=== PATIENT | female | born 1980 | race Caucasian/White ===

== ENCOUNTER 2020-07-26 09:31 | Outpatient (REF) | payer OTHER, SELFPAY | END 2020-07-26 09:32 | disposition home or self-care (01) | LOC: HO.LAB 09:31 | PROVIDERS: Visit Provider Internal Medicine | DX: Z20.822 Contact with and (suspected) exposure to COVID-19 (principal) | CPT/HCPCS: 36415; C9803; U0003; U0005 ==

== ENCOUNTER 2020-08-08 09:58 | Outpatient (REF) | payer OTHER, SELFPAY | END 2020-08-08 09:59 | disposition home or self-care (01) | LOC: HO.LAB 09:58 | PROVIDERS: Visit Provider Internal Medicine | DX: Z20.822 Contact with and (suspected) exposure to COVID-19 (principal) | CPT/HCPCS: 36415; C9803; U0003; U0005 ==

== ENCOUNTER 2021-10-11 05:37 | Emergency (ER) | payer OTHER, SELFPAY ==
--- NOTE | 2021-10-11 | ECG_ITS ---
Test Reason : sob Blood Pressure : / mmHG Vent. Rate : 089 BPM Atrial Rate : 089 BPM P-R Int : 144 ms QRS Dur : 086 ms QT Int : 366 ms P-R-T Axes : 042 026 -07 degrees QTc Int : 445 ms Normal sinus rhythm Normal ECG No previous ECGs available Referred By: Generic ED Physician Electronically Signed By:RAYMUNDO ERNST
--- NOTE | ~2021-10-11 | XR_ITS ---
EXAMINATION: XR CHEST CLINICAL INFORMATION: Cough. COMPARISON: None TECHNIQUE: Frontal view of the chest was obtained. FINDINGS: Multiple artifacts overlie the thorax. Normal appearance of the cardiomediastinal structures. No effusions or pneumothoraces. No focal pulmonary consolidation. Low lung volumes with the fifth anterior rib segments terminating projection with the lung bases. XR/XR chest 1V IMPRESSION: Low lung volumes; otherwise no acute cardiopulmonary abnormalities.
[2021-10-11 05:40] VITALS: PULSE 97; RESP 24; TEMP 36.8; O2SAT 98; BMI 25.1
[2021-10-11 05:58] LABS: Basophils Percent Auto 0.2 % (0-2); Eosinophils Absolute Auto 0.4 X10*3/uL (0.0-0.4); Eosinophils Percent Auto 4.4 % (0-4); Hematocrit 42.8 % (37.0-47.0); Hemoglobin 14.3 g/dl (12.0-16.0); Imm Gran Abs Auto 0.03 X10*3/uL (0.00-0.03); Imm Gran Pct Auto 0.3 % (0.0-0.4); Lymphocytes Absolute Auto 2.4 X10*3/uL (1.2-4.9); Lymphocytes Percent Auto 23.5 % (20-40); MANUAL DIFF FLAG NO; Mean Corpuscular HGB Conc 33.4 g/dl (31.0-35.0); Mean Corpuscular Volume 89.7 fL (80.0-98.0); Monocytes Absolute Auto 0.9 X10*3/uL (0.1-1.2); Monocytes Percent Auto 9.1 % (2-11); Neutrophils Absolute Auto 6.3 x10*3/uL (2.0-8.3); Neutrophils Percent Auto 62.5 % (45-73); Platelet Count 370 X10*3/uL (160-400); Red Blood Count 4.77 X10*6/uL (4.20-5.50); Red Cell Distribution Width 12.9 % (11.0-16.0)
--- NOTE | 2021-10-11 06:00 | PC.NURSE ---
PT having bouts of coughing with O2 sat decreasing to 91-92%. O2 sat returned to 94-95% when coughing but still reporting SOB. PT placed on O2 at 2 L/min via NC with sats improving to 98%.
--- NOTE | 2021-10-11 06:16 | ED_ITS ---
HPI - SOB/Dyspnea General Chief Complaint: Dyspnea Stated Complaint: Sob Time Seen by Provider: 10/11/21 06:14 Source: patient Mode of arrival: ambulatory Limitations: no limitations History of Present Illness HPI Narrative: Patient history of asthma been coughing with shortness of breath for last 1 week already been vaccinated against COVID bleeding booster dose cough is mostly dry. No chest pain no leg swelling no nausea no vomiting patient's son was also sick with same also patient lost her voice coughing a lot when taking a deep breath Related Data Previous Rx's Medication Instructions Recorded cefuroxime axetil 500 mg tablet 500 mg PO BID #20 tab 10/11/21 codeine 10 mg-guaifenesin 100 mg/5 10 ml PO Q6H PRN #237 ml 10/11/21 mL oral liquid doxycycline hyclate 100 mg tablet 100 mg PO BID #20 tab 10/11/21 prednisone 20 mg tablet 40 mg PO DAILY #10 tab 10/11/21 Allergies Allergy/AdvReac Type Severity Reaction Status Date / Time No Known Allergies Allergy Unverified 03/03/20 19:43 [No Known Allergies*] Review of Systems Review of Systems: Yes all other systems are reviewed and are negative [facility] Social History Social History Advance Directives: No Physical Exam Vital Signs: Vital Signs: Last Vital Signs Temp 98.2 F 10/11/21 05:40 Pulse 97 10/11/21 06:30 Resp 24 H 10/11/21 06:30 Pulse Ox 98 10/11/21 05:40 BMI result Body Mass Index 25.1 Appearance: Alert. Oriented X3. Mild distress with frequent cough. Eyes: No pallor ENT: Pharynx normal. Oral Mucosa moist muffled voice no stridor Neck: Normal inspection. Neck supple. CVS: Normal heart rate and rhythm. Pulses normal. Respiratory: mild respiratory distress. Equal air entry bilateral, bilateral wheezing and rhonchi no crackles Abdomen: Soft and nontender. Bowel sounds are present, Skin: Skin warm and dry. Normal skin color. Normal skin turgor. Extremities: No lower extremity edema. No calf tenderness Neuro: Oriented X 3. MDM - SOB/Dyspnea MDM Narrative Medical decision making narrative: Patient COVID influenza negative will give nebulizing treatment and steroids chest x-ray negative for any infiltrate we will discharge patient home on Ceftin doxycycline prednisone advised to follow with PCP patient is saturating 95% on room air Lab Data Attestation: I reviewed the patient's lab results. Result diagrams: 10/11/21 05:53 10/11/21 05:53 Labs: Lab Results 10/11/21 10/11/21 10/11/21 Range/Units 05:48 05:48 05:53 WBC 10.0 (4.8-10.8) X10*3/uL RBC 4.77 (4.20-5.50) X10*6/uL Hgb 14.3 (12.0-16.0) g/dl Hct 42.8 (37.0-47.0) % MCV 89.7 (80.0-98.0) fL MCH 30.0 (27.0-33.0) pg MCHC 33.4 (31.0-35.0) g/dl RDW 12.9 (11.0-16.0) % Plt Count 370 (160-400) X10*3/uL MPV 10.0 (9.4-12.3) fL Immature Gran % (Auto) 0.3 (0.0-0.4) % Neut % (Auto) 62.5 (45-73) % Lymph % (Auto) 23.5 (20-40) % [place] % (Auto) 9.1 (2-11) % Eos % (Auto) 4.4 H (0-4) % Baso % (Auto) 0.2 (0-2) % Lymph # (Auto) 2.4 (1.2-4.9) X10*3/uL [place] # (Auto) 0.9 (0.1-1.2) X10*3/uL Eos # (Auto) 0.4 (0.0-0.4) X10*3/uL Baso # (Auto) 0.0 (0.0-0.2) X10*3/uL Abs Immat Gran (auto) 0.03 (0.00-0.03) X10*3/uL Absolute Neuts (auto) 6.3 (2.0-8.3) x10*3/uL Absolute Nucleated RBC 0.000 (0.0-0.012) X10*3/uL Nucleated RBC % (auto) 0.0 (0.0-0.2) /100WBC Sodium (135-145) mmol/L Potassium (3.3-5.1) mmol/L Chloride (96-108) mmol/L Carbon Dioxide (22-29) mmol/L Anion Gap (12-20) BUN (9-16) mg/dL Creatinine (0.5-1.4) mg/dL Estim Creat Clear Calc Estimated GFR Random Glucose (60-115) mg/dL Calcium (8.4-10.2) mg/dL Total Bilirubin (0.0-1.0) mg/dL AST (5-31) U/L ALT (0-31) U/L Alkaline Phosphatase (39-117) U/L Troponin I High Sens (<3.5-17.0) ng/L Total Protein (6.5-8.0) g/dL Albumin (3.5-5.0) g/dL COVID-19 (ZAYDA) Negative (Negative) COVID-19 Clin Com See Note Influenza Type A (JENNIFER) Negative (Negative) Influenza Type B (JENNIFER) Negative (Negative) Influenza A & B Note See Note 10/11/21 10/11/21 Range/Units 05:53 05:53 WBC (4.8-10.8) X10*3/uL RBC (4.20-5.50) X10*6/uL Hgb (12.0-16.0) g/dl Hct (37.0-47.0) % MCV (80.0-98.0) fL MCH (27.0-33.0) pg MCHC (31.0-35.0) g/dl RDW (11.0-16.0) % Plt Count (160-400) X10*3/uL MPV (9.4-12.3) fL Immature Gran % (Auto) (0.0-0.4) % Neut % (Auto) (45-73) % Lymph % (Auto) (20-40) % [place] % (Auto) (2-11) % Eos % (Auto) (0-4) % Baso % (Auto) (0-2) % Lymph # (Auto) (1.2-4.9) X10*3/uL [place] # (Auto) (0.1-1.2) X10*3/uL Eos # (Auto) (0.0-0.4) X10*3/uL Baso # (Auto) (0.0-0.2) X10*3/uL Abs Immat Gran (auto) (0.00-0.03) X10*3/uL Absolute Neuts (auto) (2.0-8.3) x10*3/uL Absolute Nucleated RBC (0.0-0.012) X10*3/uL Nucleated RBC % (auto) (0.0-0.2) /100WBC Sodium 140 (135-145) mmol/L Potassium 4.2 (3.3-5.1) mmol/L Chloride 106 (96-108) mmol/L Carbon Dioxide 22 (22-29) mmol/L Anion Gap 16 (12-20) BUN 15 (9-16) mg/dL Creatinine 0.85 (0.5-1.4) mg/dL Estim Creat Clear Calc 97.3 Estimated GFR > 60 Random Glucose 140 H (60-115) mg/dL Calcium 9.8 (8.4-10.2) mg/dL Total Bilirubin 0.3 (0.0-1.0) mg/dL AST 30 (5-31) U/L ALT 53 H (0-31) U/L Alkaline Phosphatase 91 (39-117) U/L Troponin I High Sens < 3.5 (<3.5-17.0) ng/L Total Protein 7.5 (6.5-8.0) g/dL Albumin 4.0 (3.5-5.0) g/dL COVID-19 (ZAYDA) (Negative) COVID-19 Clin Com Influenza Type A (JENNIFER) (Negative) Influenza Type B (JENNIFER) (Negative) Influenza A & B Note Discharge Plan Discharge Clinical Impression: Asthma with exacerbation, Acute bronchitis Patient Disposition: Home, Self-Care Instructions: Asthma (ED), Acute Bronchitis (ED) Additional Instructions: Continue to use albuterol nebulizing treatment every 4-6 hours as needed Prednisone antibiotic as prescribed Follow with PCP if not better Prescriptions: New prednisone 20 mg tablet 40 mg PO DAILY Qty: 10 0RF codeine-guaifenesin 10-100 mg/5 mL liquid 10 ml PO Q6H PRN (Reason: cough) Qty: 237 0RF cefuroxime axetil 500 mg tablet 500 mg PO BID Qty: 20 0RF doxycycline hyclate 100 mg tablet 100 mg PO BID Qty: 20 0RF
[2021-10-11 06:17] LABS: Troponin-I High Sensitivity < 3.5 ng/L (<3.5-17.0)
[2021-10-11 06:19] LABS: COVID-19 Test Negative (Negative); IDNOW Serial# 55D5AD1C
[2021-10-11 06:20] LABS: Influenza A Negative (Negative); Influenza B2 Negative (Negative)
[2021-10-11] MEDS: methylPREDNISolone Sod Succ 125 MG/2 ML VIAL IVPUSH (06:23)
[2021-10-11] MEDS: guaiFEN/Codeine SF 200/20/10ML 10 ML LIQUID PO (06:23)
[2021-10-11 06:25] LABS: Alanine Aminotransferase 53 U/L (0-31); Alkaline Phosphatase 91 U/L (39-117); Anion Gap 16 (12-20); Aspartate Amino Transferase 30 U/L (5-31); Bilirubin Total 0.3 mg/dL (0.0-1.0); Blood Urea Nitrogen 15 mg/dL (9-16); Calcium 9.8 mg/dL (8.4-10.2); Carbon Dioxide 22 mmol/L (22-29); Chloride 106 mmol/L (96-108); Creatinine Clr Calc Pharmacy 97.3; Estimated Glomerular Filt Rate > 60; Glucose Random 140 mg/dL (60-115); Potassium 4.2 mmol/L (3.3-5.1); Sodium 140 mmol/L (135-145); Total Protein 7.5 g/dL (6.5-8.0)
[2021-10-11] MEDS: Albuterol/Iprat 2.5/0.5MG 3 ML AMPUL.NEB INHALE (06:29)
[2021-10-11] MEDS: Albuterol Sulfate (0.083%) 2.5 MG/3 ML VIAL.NEB 5 MG INHALE (06:29)
[2021-10-11 06:30] VITALS: PULSE 97; RESP 24
[2021-10-11] MEDS: Magnesium Sulfate/H2O 2 GM/50 ML PIGGYBACK IV (06:45)
[2021-10-11 07:04] VITALS: BP 128/83; PULSE 83; RESP 18; TEMP 37.1; O2SAT 98
== END 2021-10-11 07:54 | disposition home or self-care (01) ==
PROVIDERS: Emergency Provider Internal Medicine
DX: J20.9 Acute bronchitis, unspecified (principal); J45.901 Unspecified asthma with (acute) exacerbation; Z20.822 Contact with and (suspected) exposure to COVID-19
CPT/HCPCS: 36415; 71045; 80053; 84484; 85025; 87502; 87635; 93005; 94640; 94644; 96365; 96366; 96375; 99284; J2930; J3475

== ENCOUNTER → 2022-11-08 11:22 | Outpatient (BNVA) | payer OTHER, SELFPAY | PROVIDERS: Visit Provider Physician Assistant Surgical ==

== ENCOUNTER 2022-12-25 11:21 | Outpatient (AMB) | payer OTHER, SELFPAY ==
--- NOTE | 2022-12-25 11:26 | MHC.OFFVISWM ---
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 Her goal is to lose weight and achieve a healthy lifestyle as well as to improve, if not resolve, obesity related medical conditions, including HTN and MARK. She reports first being concerned about her weight 6 years ago since coming to [facility], highest weight to date was 320. Her initial weight on 11/08/22 was 320.8 and a BMI of 44.8. She cut out candy and fried food. Current weight is 309.4 with a BMI of 43.2. She has tried multiple methods of weight loss including fad diets without permanent results. She lives with her 2 kids. She currently does not work. She cannot eat anything with nuts due to anaphylactic reaction. 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 She previously was able to tolerate protein bars but now has to carry an epi-pen as she has throat closing. She wakes at:?8am, and goes to bed at?11 pm. Dinner is at 4pm. Breakfast: eggs, ham cheese, soda crackers AM snack: yogurt Lunch: skip PM snack: yogurt or fruit Dinner: chicken, salmon, vegetables After dinner: yogurt, popcorn, Other snacks: cheese and crackers, cookies, ice cream Liquids: 32-48 oz water, no soda. regular iced tea 16 oz, 16 oz coffee daily Alcohol/marijuana/tobacco intake: none Exercise: walking, treadmill at home. GERD score: 5 DOMINIC score: 3 ESS score: 12 QOL score: 95 PFSH Surgical History Hx of section Hx of cholecystectomy Hx of hernia repair Hx of rectal polypectomy Family History Mother No problems noted. Father Hypertension Heart disease Brother No problems noted. Brother No problems noted. Son No problems noted. Son No problems noted. Social History Alcohol intake: never Patient Tobacco Use Status: Never used Tobacco Review of Systems Const All systems reviewed & are unremarkable except as noted in HPI and below Physical Exam Vital Signs: Last Vital Signs Temp 97.2 F 12/25/22 11:36 Pulse 80 12/25/22 11:36 BP 136/73 12/25/22 11:36 Pulse Ox 96 12/25/22 11:36 Oxygen Delivery Method Room Air 12/25/22 11:36 BMI result Body Mass Index 43.1 Const General: cooperative, healthy appearing and no acute distress Orientation/consciousness: patient oriented x3 HEENT Head: Yes normal to inspection Ears: hearing grossly normal bilaterally General nose exam: Normal external nose present Face and sinus: Yes normal facial exam Eyes General: appearance normal, both eyes and all related structures Resp Effort & Inspection: normal respiratory effort Auscultation: clear to auscultation bilaterally Cardio Rate: regular rate Rhythm: regular rhythm Heart sounds: S1 normal heart sound present and S2 normal heart sound present GI Inspection: Yes normal to inspection, No distended and Yes obesity Palpation (GI): Soft to palpation, nontender and no guarding Auscultation: normal bowel sounds Skin General skin exam: no rashes or lesions noted Neuro General: patient oriented x3 Extrem General: No edema Psych Appearance: grossly normal Mental Status: mental status grossly normal Speech and movement: Normal speech and movement present Affect: normal affect Attitude: cooperative Assessment & Plan Assessment & Plan (1) Morbid obesity: Code(s): E66.01 - Morbid (severe) obesity due to excess calories Plan: This is a?42 yo female who will start our SWL program to prepare for bariatric surgery.? Will check blood work, h pylori , CXR, ECG, Abd US and UGI at her 3 week follow up if she is still interested in the program. She will be scheduled for RD and BH initial consultations. She will start SWL classes and watch the first three videos before her next appointment. ? Adequate sleep of 7-8 hours per night discussed, awakening at 8 am and going to bed at 11 pm ? Purchase body composition analyzer scale (Jun sol or Lesa recommended) and check weight weekly. The best time to do this is first thing in the morning after going to the bathroom. 1. Nutritional counseling: Be sure to careful read the number of scoops per shake Start with 3 Orgain shakes ([employer], [employer], [employer]) First shake (1 and 1/2 scoops in 8 oz low fat milk) at 9am-11am, Second shake, (1 scoop in 8 oz low fat milk) at 1pm-3pm Dinner at 4pm (10 forks of protein and 10 forks of salad/vegetables). Meal to include lean meat (beef, fish, pork, turkey, chicken), cooked vegetables or a salad with olive oil and/or fruits (berries, pears, apples, kiwi). Avoid salt, breads, potatoes, rice, pasta, desserts. 1 protein bar (NoNuts bars at [employer] or [employer] at 6pm-8pm. Another shake with 1 scoop in 8 oz low fat milk at 9pm-11pm. Try to drink 64 oz of water daily and avoid soda and juices. Be sure to read all labels closely as you have a serious nut allergy ?2. Each shake would be drunk slowly, like coffee in a period of 2 hours. ?3. Cut each bar in 4 pieces and eat each piece in 30 min ?to make each bar last 2 hours. ?4. I emphasized the importance of measuring accurately the food portion and measure it carefully when serving the food on the plate ?5. The meal portions include 10 full-size forks of meat and 10 full-size forks of salad. You always eat the meat portion but you can replace up to half of the forks of salad/vegetables with rice, potatoes or pasta, or a fruit ?if you like. The less you do it the better weight loss will be. ?6. One full-size fork is what can be scooped on the fork without falling aside and not what can be bit with the fork. Use regular forks like those you find in a typical restaurant. ?7.? Please send me weight measurements as soon as possible and then once a week. Always include your diet and exercise plan. Alternatively come weekly at the office for weight checks and send me the measurements. ?8. Exercise counseling: Begin by watching a stretching for beginners video. Start slowly and begin to stretch your muscles. You should do this before and after each exercise session to prevent injury. Please begin to use the treadmill that you have in your home. Start treadmill with a speed of 3.0 and incline of 0, increasing incline by 1 every 3 minutes to the highest comfortable level (max 6 for now) then decrease in the same fashion. Repeat process to a goal of 300 calories. Goal of 2000 calories burned or more weekly. You may also consider use of a stationary bike. The easiest would be to chose the fat-burn or interval training program on the machine and do this until you reach the 300 calorie goal. Alternatively, you can manually adjust the resistance in a similar fashion as mentioned above, (resistance of 2-8 with a goal speed of 12 mph). Tracking calories is essential. 9. Alternatively start walking outside daily, tracking calories with a goal of 300 calories per day, daily. You can download the jason SUNDAYTOZ which can track your time, distance and calories while walking outside. You press start in the jason when you start and then stop when you are finished. 10.? It is important to avoid and for at least 18 months postoperatively. 11. Please text me weekly with your weight and also let me know if you have any problems with the plans. 12. Discussed and answered all questions regarding?obtained consent to participate in the [facility]?Registry. 13. Please follow the diet plan exactly, without any change. If you do not like something about the plan or you feel hungry, you need to communicate with me so I can help you revise the plan. You should not change the plan yourself. Text me at [phone] 14. Goal is to lose at least 12 pounds in the first month 15. Goal is to lose 10% of your weight before surgery, which is about 30 lbs. Ultimate weight goal: 279 lbs before surgery Patient is morbidly obese and is not considered stable at this time.?I spent a total of 70 minutes reviewing/updating records, examining the patient and counseling the patient on weight management as detailed above. Coding Level of Care Code New Pt Level 5 (22166) Diagnoses Morbid obesity E66.01 Time Spent (min) 70
[2022-12-25 11:36] VITALS: BP 136/73; PULSE 80; TEMP 36.2; O2SAT 96; BMI 43.1
== END 2022-12-25 13:19 | disposition home or self-care (01) ==
PROVIDERS: Visit Provider Physician Assistant Surgical
DX: E66.01 Morbid (severe) obesity due to excess calories (principal); Z68.41 Body mass index [BMI] 40.0-44.9, adult
CPT/HCPCS: 99205

== ENCOUNTER → 2022-12-25 11:21 | Outpatient (BNVA) | payer OTHER, SELFPAY | PROVIDERS: Visit Provider Physician Assistant Surgical | DX: E66.01 Morbid (severe) obesity due to excess calories (principal); Z68.41 Body mass index [BMI] 40.0-44.9, adult | CPT/HCPCS: 99202 ==

== ENCOUNTER 2023-01-17 10:24 | Outpatient (AMB) | payer OTHER, SELFPAY ==
--- NOTE | 2023-01-17 10:42 | MHC.OFFVISWM ---
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 They were last seen in the office on 12/25/22, recorded weight at that time was 309.4 pounds, with a BMI of 43.1. Today's weight is 304.6 pounds and BMI is 42.5. There has been a weight loss of 16.2 pounds since initiating the surgical weight loss program on 11/08/22 with a total body weight loss of 5.04 %. The patient reports she was trying to follow the meal plan but did not buy the bars, will do so now. She has also had dietary indiscretions 2-3 per week. Current meal plan includes: 3 Orgain shakes ([employer], [employer], [employer]) First shake (1 and 1/2 scoops in 8 oz low fat milk) at 9am-11am, Second shake, (1 scoop in 8 oz low fat milk) at 1pm-3pm Dinner at 4pm (10 forks of protein and 10 forks of salad/vegetables). Meal to include lean meat (beef, fish, pork, turkey, chicken), cooked vegetables or a salad with olive oil and/or fruits (berries, pears, apples, kiwi). Avoid salt, breads, potatoes, rice, pasta, desserts. 1 protein bar (NoNuts bars at [employer] or [employer]) at 6pm-8pm. Another shake with 1 scoop in 8 oz low fat milk at 9pm-11pm. Drinking 48 oz of water Current exercise plan includes: walking and home videos PFSH Surgical History Hx of section Hx of cholecystectomy Hx of hernia repair Hx of rectal polypectomy Family History Mother No problems noted. Father Hypertension Heart disease Brother No problems noted. Brother No problems noted. Son No problems noted. Son No problems noted. Social History Alcohol intake: never Patient Tobacco Use Status: Never used Tobacco Physical Exam Vital Signs: Last Vital Signs Temp 96.5 F L 01/17/23 10:59 Pulse 78 01/17/23 10:59 BP 133/80 01/17/23 10:59 Pulse Ox 97 01/17/23 10:59 Oxygen Delivery Method Room Air 01/17/23 10:59 BMI result Body Mass Index 42.5 Const General: healthy appearing and no acute distress Resp Effort & Inspection: normal respiratory effort Auscultation: clear to auscultation bilaterally Cardio Rate: regular rate Rhythm: regular rhythm GI Auscultation: normal bowel sounds Extrem General: Yes normal to inspection Assessment & Plan Assessment & Plan (1) Morbid obesity: Code(s): E66.01 - Morbid (severe) obesity due to excess calories Plan: Discussed importance of following meal plan exactly and to re-read email (brought up on pt phone for her) Discussed importance of tracking calories RTC 4 weeks order labs and dx imaging Orders: Orders Vitamin B12 and Folate Today E66.01 - Morbid (severe) obesity due to excess calories, I10 - Essential (primary) hypertension Comprehensive Met. Panel Today E66.01 - Morbid (severe) obesity due to excess calories, I10 - Essential (primary) hypertension C Reactive Protein Today E66.01 - Morbid (severe) obesity due to excess calories, I10 - Essential (primary) hypertension Ferritin Today E66.01 - Morbid (severe) obesity due to excess calories, I10 - Essential (primary) hypertension Hemoglobin A1c Today E66.01 - Morbid (severe) obesity due to excess calories, I10 - Essential (primary) hypertension Insulin Today E66.01 - Morbid (severe) obesity due to excess calories, I10 - Essential (primary) hypertension IRON PROFILE Today E66. - Morbid (severe) obesity due to excess calories, I10 - Essential (primary) hypertension Lipid Panel Today E66. - Morbid (severe) obesity due to excess calories, I10 - Essential (primary) hypertension PTHI Today E66. - Morbid (severe) obesity due to excess calories, I10 - Essential (primary) hypertension TSH reflex Free T4 Today E66. - Morbid (severe) obesity due to excess calories, I10 - Essential (primary) hypertension Vitamin A Today E66. - Morbid (severe) obesity due to excess calories, I10 - Essential (primary) hypertension Vitamin B1 Today E66. - Morbid (severe) obesity due to excess calories, I10 - Essential (primary) hypertension Vitamin D 25-OH Total Today E66. - Morbid (severe) obesity due to excess calories, I10 - Essential (primary) hypertension Zinc Today E66. - Morbid (severe) obesity due to excess calories, I10 - Essential (primary) hypertension ECG 12 lead EKG Today E66. - Morbid (severe) obesity due to excess calories, I10 - Essential (primary) hypertension FL upper GI w air Today E66. - Morbid (severe) obesity due to excess calories, I10 - Essential (primary) hypertension Complete Blood Count Auto Diff Today E66. - Morbid (severe) obesity due to excess calories, I10 - Essential (primary) hypertension H Pylori Breath Test Today E66. - Morbid (severe) obesity due to excess calories, I10 - Essential (primary) hypertension US abdomen comp w elastography Today E66. - Morbid (severe) obesity due to excess calories, I10 - Essential (primary) hypertension XR chest 2V Today E66. - Morbid (severe) obesity due to excess calories, I10 - Essential (primary) hypertension Referrals Behavioral Health Referral E66. - Morbid (severe) obesity due to excess calories, I10 - Essential (primary) hypertension Nutrition/Dietitian Referral E66. - Morbid (severe) obesity due to excess calories, I10 - Essential (primary) hypertension Coding Level of Care Code Est Pt Level 3 (08675) Diagnoses Morbid obesity 6
[2023-01-17 10:59] VITALS: BP 133/80; PULSE 78; TEMP 35.8; O2SAT 97; BMI 42.5
== END 2023-01-17 13:01 | disposition home or self-care (01) ==
PROVIDERS: Visit Provider Physician Assistant Surgical
DX: E66.01 Morbid (severe) obesity due to excess calories (principal); Z68.41 Body mass index [BMI] 40.0-44.9, adult
CPT/HCPCS: 99213

== ENCOUNTER → 2023-01-17 10:24 | Outpatient (BNVA) | payer OTHER, SELFPAY | PROVIDERS: Visit Provider Physician Assistant Surgical | DX: E66.01 Morbid (severe) obesity due to excess calories (principal); Z68.41 Body mass index [BMI] 40.0-44.9, adult | CPT/HCPCS: 99212 ==

== ENCOUNTER 2023-01-28 10:44 | Outpatient (REF) | payer OTHER, SELFPAY ==
--- NOTE | ~2023-01-28 | XR_ITS ---
EXAMINATION: XR CHEST CLINICAL INFORMATION: Morbid (severe) obesity due to excess calories COMPARISON: AP upright portable chest 10/11/2021 TECHNIQUE: 2 views of the chest were obtained. FINDINGS: No significant abnormality is noted involving the heart, lungs, mediastinum, bony thorax or soft tissues. XR/XR chest 2V IMPRESSION: No acute cardiopulmonary disease.
--- NOTE | 2023-01-28 10:53 | ECG_ITS ---
Test Reason : MORBID OBESITY Blood Pressure : / mmHG Vent. Rate : 058 BPM Atrial Rate : 058 BPM P-R Int : 140 ms QRS Dur : 086 ms QT Int : 440 ms P-R-T Axes : 018 025 002 degrees QTc Int : 431 ms Sinus bradycardia Otherwise normal ECG When compared with ECG of 11-OCT-2021 05:42, Vent. rate has decreased BY 31 BPM Referred By: Vamsi Nunez Electronically Signed By:ANGEL JACOBSON MD
[2023-01-28 11:00] LABS: MANUAL DIFF FLAG NO
[2023-01-28 13:48] LABS: Basophils Percent Auto 0.3 % (0-2); Eosinophils Absolute Auto 0.3 X10*3/uL (0.0-0.4); Eosinophils Percent Auto 3.7 % (0-4); Hematocrit 44.5 % (37.0-47.0); Hemoglobin 14.6 g/dl (12.0-16.0); Imm Gran Abs Auto 0.02 X10*3/uL (0.00-0.03); Imm Gran Pct Auto 0.3 % (0.0-0.4); Lymphocytes Absolute Auto 2.5 X10*3/uL (1.2-4.9); Lymphocytes Percent Auto 35.4 % (20-40); Mean Corpuscular HGB Conc 32.8 g/dl (31.0-35.0); Mean Corpuscular Hemoglobin 29.5 pg (27.0-33.0); Mean Corpuscular Volume 89.9 fL (80.0-98.0); Monocytes Absolute Auto 0.6 X10*3/uL (0.1-1.2); Monocytes Percent Auto 8.1 % (2-11); Neutrophils Absolute Auto 3.7 x10*3/uL (2.0-8.3); Neutrophils Percent Auto 52.2 % (45-73); Platelet Count 341 X10*3/uL (160-400); Red Blood Count 4.95 X10*6/uL (4.20-5.50); Red Cell Distribution Width 12.4 % (11.0-16.0)
[2023-01-28 14:10] LABS: Estimated Average Glucose 108 mg/dL; Hemoglobin A1c % 5.4 %
[2023-01-28 14:42] LABS: Alanine Aminotransferase 40 U/L (0-31); Alkaline Phosphatase 77 U/L (39-117); Anion Gap 12 (12-20); Aspartate Amino Transferase 22 U/L (5-31); Bilirubin Total 0.4 mg/dL (0.0-1.0); Blood Urea Nitrogen 15 mg/dL (9-16); C Reactive Protein 0.16 mg/dL (< or = 0.50); Calcium 9.4 mg/dL (8.4-10.2); Carbon Dioxide 29 mmol/L (22-29); Chloride 104 mmol/L (96-108); Cholesterol 178 mg/dL; Estimated Glomerular Filt Rate > 60; Glucose Random 95 mg/dL (60-115); HDL Cholesterol 33 mg/dL; Iron 72 mcg/dL (30-160); LDL Cholesterol Calculated 121 mg/dl; Percent Iron Saturation 26 % (15-50); Potassium 3.2 mmol/L (3.3-5.1); Sodium 142 mmol/L (135-145); Total Iron Binding Capacity 279 mcg/dL (228-428); Total Protein 7.4 g/dL (6.5-8.0); Triglycerides 120 mg/dL; Unsaturated Iron Binding 207 ug/dL
[2023-01-28 15:00] LABS: Ferritin 76 ng/mL (10-250); Insulin 18 uU/mL (2-29); TSH reflex Free T4 1.67 uIU/mL (0.32-4.0)
[2023-01-28 15:09] LABS: Folate 6.4 ng/mL (> or = 4.0); Vitamin B12 541 pg/mL (200-900)
[2023-01-29 13:59] LABS: Calcium (PTHI) 9.4 mg/dL (8.6-10.2); PTHI 52 pg/mL (16-77)
[2023-01-31 04:43] LABS: Zinc 93 mcg/dL (60-130)
[2023-02-01 17:08] LABS: Vitamin B1 8 nmol/L (8-30)
[2023-02-01 19:28] LABS: Vitamin A 41 mcg/dL (38-98)
== END 2023-01-28 10:45 | disposition home or self-care (01) ==
LOC: HO.LAB 10:44
PROVIDERS: PCP Nurse Practitioner Family; Visit Provider Physician Assistant Surgical
DX: E66.01 Morbid (severe) obesity due to excess calories (principal); I10 Essential (primary) hypertension
CPT/HCPCS: 36415; 71046; 80053; 80061; 82306; 82607; 82728; 82746; 83036; 83525; 83540; 83970; 84425; 84443; 84590; 84630; 85025; 86140; 93005

== ENCOUNTER → 2023-01-28 10:53 | Outpatient (BNV) | payer OTHER, SELFPAY | PROVIDERS: PCP Nurse Practitioner Family; Visit Provider Internal Medicine Cardiovascular Disease | DX: R00.1 Bradycardia, unspecified (principal) | CPT/HCPCS: 93010 ==

== ENCOUNTER → 2023-02-06 14:43 | Outpatient (BNVA) | payer OTHER, SELFPAY | PROVIDERS: Visit Provider Dietitian, Registered | DX: E66.9 Obesity, unspecified (principal) | CPT/HCPCS: 97802 ==

== ENCOUNTER 2023-02-12 13:15 | Emergency (ER) | payer OTHER, SELFPAY ==
--- NOTE | ~2023-02-12 | XR_ITS ---
EXAMINATION: XR FOOT, RIGHT CLINICAL INFORMATION: Tenderness of fourth and fifth toes, fifth metatarsal COMPARISON: None available. TECHNIQUE: AP, lateral, and oblique views of the right foot. FINDINGS: Soft tissue swelling along the lateral aspect of the foot. Subtle cortical step-off in transverse lucency at the distal aspect of the fifth toe proximal phalanx characteristic of a mildly displaced, impacted fracture. Punctate soft tissue calcification lateral to the fifth toe IP joint. Small ossific fragment lateral to the base of the fifth metatarsal correlates with the area of concern indicated by the patient and is concerning for small avulsion fracture fragment. There is very subtle transverse lucency at the subjacent base of the fifth metatarsal which may correlate with a nondisplaced fracture. XR/XR foot RT min 3V IMPRESSION: 1. Mildly displaced, impacted transverse fracture distal aspect fifth toe proximal phalanx. 2. Small ossific fragment lateral to the base of the fifth metatarsal correlates with the area of concern indicated by the patient and is concerning for small avulsion fracture fragment. Subtle transverse lucency at the subjacent base of the fifth metatarsal which may correlate with a nondisplaced fracture. This study was presented today 02/12/2023 at 2:47 PM for interpretation. Stat results will be provided to referring clinician at this time.
[2023-02-12 13:17] VITALS: BP 135/84; PULSE 83; RESP 20; TEMP 36.9; O2SAT 97; BMI 39.0
--- NOTE | 2023-02-12 13:18 | ED_ITS ---
HPI - General Adult General Chief complaint: Extremity Problem Stated complaint: R foot pain Time Seen by Provider: 02/12/23 15:57 Source: patient, RN notes reviewed and mental health director Mode of arrival: ambulatory Limitations: language barrier (Community Dietitian used) History of Present Illness HPI narrative: This is a 42-year-old female presenting to the emergency department for evaluation of right 5th toe pain since today. Patient states that she struck her right foot on a wall and her right 5th digit bent. She states that she immediately felt pain. She has been unable to the fully bear weight on her right foot secondary to pain. She is taking Tylenol and ibuprofen which has provided her without any relief. MD complaint: Right fifth toe pain Related Data Home Medications Medication Instructions Recorded Confirmed hydrochlorothiazide 25 mg tablet 25 mg PO DAILY 11/08/22 01/17/23 lisinopril 5 mg tablet 5 mg PO DAILY 11/08/22 01/17/23 Previous Rx's Medication Instructions Recorded cholecalciferol (vitamin D3) 125 125 mcg PO DAILY 90 days #90 caps 01/28/23 mcg (5,000 unit) capsule acetaminophen 325 mg tablet 650 mg PO Q6H PRN pain #30 tabs 02/12/23 (Tylenol) ibuprofen 600 mg tablet 600 mg PO Q6H PRN pain #45 tabs 02/12/23 oxycodone 5 mg capsule 5 mg PO Q6H PRN pain #5 caps 02/12/23 Allergies Allergy/AdvReac Type Severity Reaction Status Date / Time NUTS Allergy Mild Anaphylaxis Uncoded 11/08/22 11:28 Review of Systems Review of Systems: Yes all other systems are reviewed and are negative [facility] Past Medical History Attestation statement: The following information was validated with the patient. Surgical History Hx of section Hx of cholecystectomy Hx of hernia repair Hx of rectal polypectomy Family History Family History Mother No problems noted. Father Hypertension Heart disease Brother No problems noted. Brother No problems noted. Son No problems noted. Son No problems noted. Social History Social History Alcohol intake: never Patient Tobacco Use Status: Never used Tobacco Smoked in Last 30 Days: No Use of substances other than those prescribed or required for medical reasons: No Advance Directives: No Advance Directives Information Provided: No Physical Exam ED Vital Signs: Vital Signs - 24 hr 02/12/23 13:17 Temperature 98.4 F Pulse Rate 83 Respiratory Rate 20 Blood Pressure 135/84 Pulse Oximetry 97 Oxygen Delivery Method Room Air BMI result Body Mass Index 39.0 Const Other: General: Awake, alert, and oriented X3. No acute distress. HEENT: Normal inspection CVS: Normal heart rate and rhythm. Pulses normal. Respiratory: No respiratory distress Skin: Warm, dry, no rashes noted to exposed skin. Normal skin color. Normal skin turgor. Extremities: Right 5th digit is ecchymotic and edematous, exquisitely tender to palpation. Cap refill less than 2 seconds. No tenderness to palpation along the left 5th tarsal. Able to plantar and dorsiflex. DP pulses 2+ Neuro: Oriented X 3. No motor deficit. No sensory deficit. Course Course Course Narrative: This is a rapid medical exam: Additional HPI, ROS, PE not included below will be deferred to primary provider. Patient is a 42-year-old Nigerian-speaking female with history of HTN, MARK presenting to the emergency department with complaint of right 5th toe pain. States she hit her foot on the wall early this am around 5-6am. Ecchymosis to 5th toe, tenderness to 4th and 5th toes, 2+ DP and PT pulses. Plan: x-ray Medical Decision Making Medical Decision Making MDM Narrative: 42-year-old female presenting to the emergency department with complaints of right 5th toe pain since today. On arrival, vital signs within normal limits. Tenderness palpation along the left 5th proximal phalanx. No metatarsal tenderness. No suspicion for Dottie's or avulsion fracture of the 5th metatarsal. Given patient has no tenderness palpation. Ankle is nontender. X-ray was obtained which revealed a mildly displaced impacted transverse fracture distal aspect of the 5th toe proximal phalanx. There is also a ossific fragment lateral to the base of the 5th metatarsal. Patient has no tenderness palpation along the metatarsals, only tenderness along the proximal phalanx. Given x-ray findings, will place patient in postoperative shoe as well as danelle-tape toes. Patient medicated with oxycodone 5 mg in the department. Discharge patient with ibuprofen, Tylenol, and short course of oxycodone. Patient has crutches at home. Given orthopedic referral for follow-up. Patient understands and agrees with plan. Differential Diagnosis Differential Diagnoses: The differential diagnosis associated with the presentation includes Fracture, strain, contusion, dislocation Radiology Impression Discussion of test interpretation with radiology: I have reviewed the r adiologist's reading. Radiologist Impression: EXAMINATION: XR FOOT, RIGHT CLINICAL INFORMATION: Tenderness of fourth and fifth toes, fifth metatarsal? COMPARISON: None available.? TECHNIQUE: AP, lateral, and oblique views of the right foot. FINDINGS: Soft tissue swelling along the lateral aspect of the foot. Subtle cortical step-off in transverse lucency at the distal aspect of the fifth toe proximal phalanx characteristic of a mildly displaced, impacted fracture. Punctate soft tissue calcification lateral to the fifth toe IP joint. Small ossific fragment lateral to the base of the fifth metatarsal correlates with the area of concern indicated by the patient and is concerning for small avulsion fracture fragment. There is very subtle transverse lucency at the subjacent base of the fifth metatarsal which may correlate with a nondisplaced fracture. XR/XR foot RT min 3V IMPRESSION: 1. Mildly displaced, impacted transverse fracture distal aspect fifth toe proximal phalanx. 2. Small ossific fragment lateral to the base of the fifth metatarsal correlates with the area of concern indicated by the patient and is concerning for small avulsion fracture fragment. Subtle transverse lucency at the subjacent base of the fifth metatarsal which may correlate with a nondisplaced fracture. ? This study was presented today 02/12/2023 at 2:47 PM for interpretation. Stat results will be provided to referring clinician at this time. Dictated By: Brittney Larson MD Discharge Plan Discharge Clinical Impression: Fracture of fifth toe, right, closed Patient Disposition: Home, Self-Care Instructions: Toe Fracture (ED) Additional Instructions: Your x-ray of your foot shows a fracture to your 5th toe. Please use danelle tape and postop shoe for comfort. I also recommend using crutches, you reported that you had crutches of your own at home. Please use. Rest, ice, and elevate your right foot for pain relief. Please take Tylenol and ibuprofen as needed for pain. I am also prescribing you oxycodone. This is a narcotic medication which can be addictive. This also can cause drowsiness, do not drink alcohol or drive while taking this medication only take this medication for severe pain only. If you do not need this medication please dispose this appropriately. Do not share this medication with anyone else. You cannot get this medication refilled from the emergency room. I am also giving you a referral to Orthopedics, please call to make an appointment. If any new or worsening symptoms occur please return for re-evaluation. La radiograf?a de solomon pie muestra shari fractura en el russell dedo. Utilice cinta adhesiva y zapato postoperatorio para mayor comodidad. Tambi?n recomiendo usar muletas, usted inform? que ten?a syeda propias muletas en casa. Por favor use. Descanse, aplique hielo y levante el pie derecho para aliviar el dolor. [place] Tylenol e ibuprofeno seg?n sea necesario para el dolor. Tambi?n te estoy recetando oxicodona. Mildred es un medicamento narc?gage que puede ser adictivo. Mason tambi?n puede causar somnolencia, no mateus alcohol ni conduzca mientras libertad mildred medicamento, solo t?segundo para el dolor intenso. Si no necesita mildred medicamento, kris?pablo de forma adecuada. No comparta mildred medicamento con nadie m?s. No puede obtener resurtido de mildred medicamento en la melinda de emergencias. Tambi?n te estoy dando shari derivaci?n a [employer], por favor llama para prog ramar shari jonn. Si se presenta alg?n s?ntoma nuevo o que empeora, regrese para shari nueva evaluaci?n. Prescriptions: New acetaminophen [Tylenol] 325 mg tablet 650 mg PO Q6H PRN (Reason: pain) Qty: 30 0RF ibuprofen 600 mg tablet 600 mg PO Q6H PRN (Reason: pain) Qty: 45 0RF oxycodone 5 mg capsule 5 mg PO Q6H PRN (Reason: pain) Qty: 5 0RF Rx Instructions: Partial Fill upon patient request. No Action cholecalciferol (vitamin D3) 125 mcg (5,000 unit) capsule 125 mcg PO DAILY 90 Days Qty: 90 0RF hydrochlorothiazide 25 mg tablet 25 mg PO DAILY lisinopril 5 mg tablet 5 mg PO DAILY Referrals: [facility] [Provider Group]
[2023-02-12] MEDS: oxyCODONE HCl Immed Release 5 MG TABLET PO (17:02)
[2023-02-12 17:55] VITALS: BP 127/85; PULSE 73; RESP 20; TEMP 37.1; O2SAT 99
== END 2023-02-12 18:19 | disposition home or self-care (01) ==
PROVIDERS: Emergency Provider Student in an Organized Health Care Education/Training Program; PCP Nurse Practitioner Family
DX: S92.501A Displaced unspecified fracture of right lesser toe(s), initial encounter for closed fracture (principal); M79.671 Pain in right foot; Y29.XXXA Contact with blunt object, undetermined intent, initial encounter; Y93.9 Activity, unspecified; Y92.9 Unspecified place or not applicable; Y99.9 Unspecified external cause status; Z79.899 Other long term (current) drug therapy
CPT/HCPCS: 73630; 99283; 99284

== ENCOUNTER 2023-02-19 10:20 | Outpatient (AMB) | payer OTHER, SELFPAY ==
--- NOTE | 2023-02-19 10:24 | A.OFFVIS_ITS ---
Intake VS Expanded 02/19/23 10:29 Height 5 ft 11 in Weight 299 lb BMI 41.7 BP 132/87 Blood Pressure Location Rt brachial Blood Pressure Position Sitting Pulse 75 Pulse Source Pulse Oximeter Temp 96.8 F Temperature Source Temporal Artery Scan Pulse Oximetry 96 Oxygen Delivery Method Room Air Body Fat 142.6 Body Fat Percentage 47.7 Free Fat Mass 156.4 Muscle Mass 148.4 Visceral Mass 14.0 Water Mass 111.8 BMR 2,240 Intake Visit Reasons: (OV) F/U SWL Employee Representative Required: Yes Employee Representative Name: office cmi Allergies NUTS Allergy (Mild, Uncoded 11/08/22 11:28) Anaphylaxis Medication List - Last Reconciled 02/19/23 by CATHI Lisa acetaminophen (Tylenol) 650 mg (2 x 325 mg) PO Q6H PRN cholecalciferol (vitamin D3) 125 mcg PO DAILY 90 days hydrochlorothiazide 25 mg PO DAILY ibuprofen 600 mg PO Q6H PRN lisinopril 5 mg PO DAILY oxycodone 5 mg PO Q6H PRN HPI HPI Comments History of Present Illness Details The patient is a pleasant 42 year old female who returns to the clinic for pre-operative surgical weight loss management. They were last seen in the office on 01/16/23, recorded weight at that time was 304.6 pounds, with a BMI of 42.5. Today's weight is 299 pounds and BMI is 41.7. There has been a weight loss of 21.8 pounds since initiating the surgical weight loss program on 11/08/22 with a total body weight loss of 6.7 %. Pre op work up completed as follows: SWL classes:? 09/22 BH appts: 02/22/23 ? ? RD appts: f/u 03/12/23 Labs: 01/28/23-low D H. pylori: 02/19/23 CXR: 01/28/23-nad EK01/28/23-sinus jacey ABD U/S: 03/05/23 UGI: 03/14/23 The patient reports she was following the meal plan but not over the last week or so since she broke her right 5th toe. The narcotics caused stomach pain and constipatino. She is no longer taking the narcotics. Current meal plan includes: 3 Orgain shakes ([employer], [employer], [employer]) First shake (1 and 1/2 scoops in 8 oz low fat milk) at 9am-11am, Second shake, (1 scoop in 8 oz low fat milk) at 1pm-3pm Dinner at 4pm (10 forks of protein and 10 forks of salad/vegetables). 1 protein bar ([employer]Nuts bars at [employer] or [employer]) at 6pm-8pm. Another shake with 1 scoop in 8 oz low fat milk at 9pm-11pm. Drinking 48 oz of water Current exercise plan includes: walking and home videos [facility] Surgical History Hx of section Hx of cholecystectomy Hx of hernia repair Hx of rectal polypectomy Family History Mother No problems noted. Father Hypertension Heart disease Brother No problems noted. Brother No problems noted. Son No problems noted. Son No problems noted. Social History Alcohol intake: never Patient Tobacco Use Status: Never used Tobacco Physical Exam Vital Signs: Last Vital Signs Temp 96.8 F 02/19/23 10:29 Pulse 75 02/19/23 10:29 BP 132/87 02/19/23 10:29 Pulse Ox 96 02/19/23 10:29 Oxygen Delivery Method Room Air 02/19/23 10:29 BMI result Body Mass Index 41.7 Const General: healthy appearing and no acute distress Resp Effort & Inspection: normal respiratory effort Auscultation: clear to auscultation bilaterally Cardio Rate: regular rate Rhythm: regular rhythm GI Auscultation: normal bowel sounds Extrem Other: taped right 4th to 5th toes Assessment & Plan Assessment & Plan (1) Morbid obesity: Code(s): E66.01 - Morbid (severe) obesity due to excess calories Plan: now following plans again. encouraged to text with weekly weights rtc 1 month Coding Level of Care Code Est Pt Level 3 (09022) Diagnoses Morbid obesity E66.01
[2023-02-19 10:29] VITALS: BP 132/87; PULSE 75; TEMP 36; O2SAT 96; BMI 41.7
== END 2023-02-19 11:10 | disposition home or self-care (01) ==
PROVIDERS: Visit Provider Physician Assistant Surgical
DX: E66.01 Morbid (severe) obesity due to excess calories (principal); Z68.41 Body mass index [BMI] 40.0-44.9, adult
CPT/HCPCS: 99213

== ENCOUNTER → 2023-02-19 10:20 | Outpatient (BNVA) | payer OTHER, SELFPAY | PROVIDERS: Visit Provider Physician Assistant Surgical | DX: E66.01 Morbid (severe) obesity due to excess calories (principal); Z68.41 Body mass index [BMI] 40.0-44.9, adult | CPT/HCPCS: 99211; 99212 ==

== ENCOUNTER 2023-02-25 14:36 | Outpatient (REF) | payer OTHER, SELFPAY ==
[2023-02-26 15:29] LABS: H Pylori Breath Test Negative (Negative)
== END 2023-02-25 14:37 | disposition home or self-care (01) ==
LOC: HO.LNP 14:36
PROVIDERS: Visit Provider Physician Assistant Surgical
DX: E66.01 Morbid (severe) obesity due to excess calories (principal); I10 Essential (primary) hypertension
CPT/HCPCS: 83013

== ENCOUNTER 2023-03-07 08:54 | Outpatient (REF) | payer OTHER, SELFPAY ==
--- NOTE | ~2023-03-07 | FL_ITS ---
EXAMINATION: XR FLUOROSCOPY UPPER GI WITH AIR CLINICAL INFORMATION: Preoperative bariatric. No significant symptomatology. COMPARISON: None TECHNIQUE: Fluoroscopic air contrast upper GI examination was performed utilizing standard techniques with thin and thick barium and effervescent granules. Numerous spot images were obtained. An pig machine operator was utilized as the patient only spoke [place] Citizen. FINDINGS: Hypopharyngeal structures appear normal without evidence of mass or diverticulum. There was no significant cricopharyngeal achalasia. Dual and single contrast images of the esophagus demonstrate normal caliber, contour, and mucosal pattern. No evidence of stricture, mass, or ulcerations identified. Esophageal peristalsis was normal. No evidence of hiatus hernia identified. No significant gastroesophageal reflux was seen during the course of the examination and on reflux views. Dual contrast and single contrast images of the stomach demonstrated normal contour and mucosal pattern without evidence of mass, ulceration, or other abnormality. Contrast freely passed into the gastric antrum and duodenal bulb without delay. Single and air-contrast images of the duodenal bulb demonstrate no abnormality. The duodenal sweep has a normal appearance, course, and mucosal fold appearance. The imaged proximal jejunum has a normal fold pattern and caliber. Cholecystectomy clips were noted. FLUOROSCOPY TIME: 3 minutes 25 seconds Number of Spot Images: 3 fluoroscopic image hold cine runs. 15 spot images obtained. DOSE AREA PRODUCT: [id number] uGy-m2 (microgray-meter squared) FL/FL upper GI w air IMPRESSION: 1. Mild cricopharyngeal achalasia. 2. Normal-appearing esophagus and GE junction. No definite hiatus hernia. 3. Minimal reflux noted, possibly clinically insignificant. 4. Otherwise normal esophagus, stomach, duodenal bulb, sweep, and proximal small bowel.
== END 2023-03-07 08:55 | disposition home or self-care (01) ==
LOC: HO.XRAY 08:54
PROVIDERS: Visit Provider Physician Assistant Surgical
DX: E66.01 Morbid (severe) obesity due to excess calories (principal); I10 Essential (primary) hypertension
CPT/HCPCS: 74246

== ENCOUNTER → 2023-03-07 08:54 | Outpatient (BNV) | payer OTHER, SELFPAY | PROVIDERS: Visit Provider Radiology Diagnostic Radiology | DX: K22.0 Achalasia of cardia (principal); Z01.818 Encounter for other preprocedural examination; Z96.89 Presence of other specified functional implants | CPT/HCPCS: 74246 ==

== ENCOUNTER 2023-03-14 08:59 | Outpatient (REF) | payer OTHER, SELFPAY ==
--- NOTE | ~2023-03-14 | US_ITS ---
EXAMINATION: US COMPLETE ABDOMEN WITH LIVER ELASTOGRAPHY CLINICAL INFORMATION: Obesity COMPARISON: None available. TECHNIQUE: Real-time imaging of the abdominal viscera. Noninvasive ultrasound liver fibrosis assessment is performed using Yovanny ElastPQ point quantification shear wave elastography (2D-SWE) with a C5-2 MHz transducer. Multiple elastography samples are obtained. FINDINGS: PANCREAS: The visualized pancreatic head and body are normal in appearance. The remainder of the pancreas is obscured from visualization by the overlying bowel gas. ABDOMINAL AORTA: The proximal, middle, and distal aortic segments are normal in caliber. INFERIOR VENA CAVA: Visualized portions are normal. LIVER: Liver echotexture is slightly increased. The liver is normal in size and contour. No focal lesion or intrahepatic biliary duct dilatation. The right lobe measures 16.5 cm in length. The left lobe measures 10 cm in length. Portal flow is normal/hepatopedal Shear wave liver elastography median stiffness is 1.08 m/s (reference: normal median stiffness is 1.3 m/s or less). IQR/median stiffness to assess sampling precision is 0.09 (reference: good quality data set is IQR/median stiffness of 0.15 or less). GALLBLADDER: Surgically removed COMMON BILE DUCT: Normal in caliber measuring 0.4 cm in diameter. RIGHT KIDNEY: 3 cm cyst in the upper pole. No imaging follow-up recommended. No hydronephrosis. No renal calculi or suspicious focal parenchymal lesions. The kidney measures 13 cm in maximum dimension. LEFT KIDNEY: 2 cm cyst in the lower pole. No imaging follow-up recommended No hydronephrosis. No renal calculi or suspicious focal parenchymal lesions. The kidney measures 14 cm in maximum dimension. SPLEEN: Normal. The spleen measures 12 cm in maximum dimension. FREE FLUID: None. US/US abdomen comp w elastography IMPRESSION: 1. Impression: Slightly echogenic liver probably representing fatty infiltration. Limited visualization of the pancreas. 2. Liver elastography: Adequate liver sampling. Normal liver stiffness. REFERENCE: Society of Radiologists in Ultrasound Liver Stiffness Thresholds (2020): LIVER STIFFNESS THRESHOLDS: *Liver Stiffness equal or less than 1.3 m/s: High probability of being normal. *Liver Stiffness less than 1.7 m/s: In the absence of other known clinical signs, rules out compensated advanced chronic liver disease. *Liver Stiffness 1.7-2.1 m/s: Suggestive of compensated advanced chronic liver disease but need further test for confirmation. *Liver Stiffness over 2.1 m/s: Rules in compensated advanced chronic liver disease. *Liver Stiffness over 2.4 m/s: Suggestive of clinically significant portal hypertension. QUALITY OF DATA SET: *IQR/Median value equal or less than 0.15 implies a quality data set. *IQR/Median value over 0.15 implies a poor quality data set. SIGNIFICANT CHANGE FROM PRIOR EXAM: Significant change if liver stiffness measurement is 10% or greater from prior exam. OTHER CONSIDERATIONS: The stage of liver fibrosis may be overestimated in the setting of acute hepatitis, liver inflammation, elevated liver function tests, hepatic vascular congestion, obstructive cholestasis, non-fasting state, and infiltrative diseases such as amyloidosis and lymphoma. In some patients with NAFLD, the liver stiffness thresholds for compensated advanced chronic liver disease may be lower. In causes other than viral hepatitis and NAFLD, liver stiffness thresholds are not well established.
== END 2023-03-14 09:00 | disposition home or self-care (01) ==
LOC: HO.US 08:59
PROVIDERS: Visit Provider Physician Assistant Surgical
DX: E66.01 Morbid (severe) obesity due to excess calories (principal); I10 Essential (primary) hypertension
CPT/HCPCS: 76705; 76981

== ENCOUNTER 2024-02-04 06:35 | Emergency (ER) | payer OTHER, SELFPAY ==
[2024-02-04] VITALS (10 sets, daily range): BP systolic 109–142; BP diastolic 76–94; PULSE 76–98; RESP 12–21; TEMP 36.6; O2SAT 95–98; BMI 42.4
--- NOTE | ~2024-02-04 | XR_ITS ---
EXAMINATION: XR CHEST CLINICAL INFORMATION: Chest pain. Weakness. COMPARISON: Chest radiograph dated 01/28/2023. TECHNIQUE: AP and lateral views of the chest. FINDINGS: Hypoinflation of the lungs with minimal right basilar atelectasis. No confluent airspace consolidation. No pleural effusion or pneumothorax. Stable cardiomediastinal silhouette. XR/XR chest 2V IMPRESSION: Hypoinflation of the lungs with minimal right basilar atelectasis. Electronically signed by: Sage Mcfadden MD 02/04/2024 11:15 AM EDT
--- NOTE | 2024-02-04 06:36 | ECG_ITS ---
Test Reason : cp Blood Pressure : / mmHG Vent. Rate : 101 BPM Atrial Rate : 101 BPM P-R Int : 170 ms QRS Dur : 134 ms QT Int : 322 ms P-R-T Axes : 056 -46 028 degrees QTc Int : 417 ms Poor data quality, interpretation may be adversely affected Sinus tachycardia Possible Left atrial enlargement Left axis deviation Left ventricular hypertrophy with QRS widening ( Kell product ) Nonspecific T wave abnormality Abnormal ECG When compared with ECG of 28-JAN-2023 10:57, Vent. rate has increased BY 43 BPM Questionable change in QRS duration Referred By: Riri Miller Electronically Signed By:HEIDI MATHIAS
--- NOTE | 2024-02-04 06:53 | ED_ITS ---
HPI - Chest Pain General Chief Complaint: Chest Pain Stated Complaint: chest pain facial numbness Time Seen by Provider: 02/04/24 06:53 Source: patient and RN notes reviewed Mode of arrival: ambulatory Limitations: no limitations History of Present Illness ED Provider: Lida Gaitan PA-C HPI narrative: This is a 73-[id number]-eeh-female, with a history of HTN, who presents to the ER with complaints of left sided chest pain with bilateral upper extremity numbness and left sided facial numbness which started 30 minutes prior to arrival. Patient states that she was asleep when she woke with left-sided arm pain patient states that this since progressed into the left side of her chest. She states that she was having a bad dream, states that she woke up with bilateral arm pain, chest pain, slight numbness in her face. MD complaint: chest pain Onset (ago): minute(s) Timing of current episode: constant Onset: during rest and awoke with symptoms Pain location: left chest Pain radiation: right arm and left arm Severity: moderate Quality: aching and heaviness Relieving factors: nothing Exacerbating factors: nothing Risk Factors Coronary artery disease risk factors: hypertension Thoracic aortic dissection risk factors: none Related Data On Oral Contraceptives: No Home Medications ?Medication ?Instructions ?Recorded ?Confirmed hydrochlorothiazide 25 mg tablet 25 mg PO DAILY 11/08/22 02/19/23 lisinopril 5 mg tablet 5 mg PO DAILY 11/08/22 02/19/23 Previous Rx's ?Medication ?Instructions ?Recorded acetaminophen 325 mg tablet 650 mg (2 x 325 mg) PO Q6H PRN 02/12/23 (Tylenol) pain #30 tabs ibuprofen 600 mg tablet 600 mg PO Q6H PRN pain #45 tabs 02/12/23 oxycodone 5 mg capsule 5 mg PO Q6H PRN pain #5 caps 02/12/23 cholecalciferol (vitamin D3) 125 125 mcg PO DAILY 90 days #90 caps 05/15/23 mcg (5,000 unit) capsule cyclobenzaprine 10 mg tablet 10 mg PO TID PRN muscle spasm #10 02/04/24 tabs Allergies Allergy/AdvReac Type Severity Reaction Status Date / Time NUTS Allergy Mild Anaphylaxis Uncoded 02/04/24 06:52 Review of Systems 2 Review of Systems: Yes all other systems are reviewed and are negative Constitutional: Constitutional: Reports as per HPI [facility] Past Medical History Surgical History Hx of section Hx of cholecystectomy Hx of hernia repair Hx of rectal polypectomy Family History Family History Mother No problems noted. Father Hypertension Heart disease Brother No problems noted. Brother No problems noted. Son No problems noted. Son No problems noted. Social History Social History Alcohol intake: never Patient Tobacco Use Status: Never used Tobacco Smoked in Last 30 Days: No Use of substances other than those prescribed or required for medical reasons: No Advance Directives: No Advance Directives Information Provided: Yes Do you have a plan to hurt others: No Plan Physical Exam 2 Vital Signs: Vital Signs: Last Vital Signs Temp 97.8 F 02/04/24 15:12 Pulse 76 02/04/24 15:12 Resp 16 02/04/24 15:12 BP 109/78 02/04/24 15:12 Pulse Ox 98 02/04/24 15:12 O2 Del Method Room Air 02/04/24 15:12 BMI result Body Mass Index 42.4 Const: General: cooperative, comfortable and no acute distress O rientation/consciousness: patient oriented x3 Limitations: no limitations HEENT: Head: Yes normal to inspection, Yes normocephalic and Yes atraumatic Ears: hearing grossly normal bilaterally General nose exam: Normal external nose present Face and sinus: Yes normal facial exam Mouth: Normal oral and palatal mucosa present, oropharynx normal and moist mucous membranes Throat: Yes posterior oropharynx normal Eyes: General: appearance normal, both eyes and all related structures E yelids: Yes eyelids normal Conjunctivae: conjunctivae normal Sclerae: s clerae normal Pupils: Equal, round and reactive pupils present EOM: EOMs intact bilaterally Neck: Other: Tenderness palpation along the cervical paraspinous muscles. Neck: Yes normal visual inspection, Yes full ROM and Yes no lymphadenopathy Lymphatic: no lymphadenopathy noted Chest: Chest palpation & inspection: normal inspection of the chest Resp: Effort & Inspection: normal respiratory effort and able to speak in complete sentences Auscultation: clear to auscultation bilaterally, no crackles, no rales, no rhonchi and no wheezes Cardio: Rate: regular rate Rhythm: regular rhythm Heart sounds: S1 normal heart sound present and S2 normal heart sound present GI: Inspection: Yes normal to inspection Skin: General skin exam: no rashes or lesions noted Trauma: no lacerations or abrasions Wounds: no wounds Neuro: General: patient oriented x3 and moves all extremities Cranial nerves: Yes CN's II-XII intact bilaterally and Yes Equal, round and reactive pupils present Cognition (Neuro): normal cognition Gait exam (Neuro): N ormal gait present Motor exam (neuro): 5/5 motor strength present throughout and Pronator motor function not present Extrem: Other: Tenderness palpation along the biceps, and left trapezius muscles. General: Yes normal to inspection Right upper extremity: normal to inspection Left upper extremity: normal to inspection Right lower extremity: normal to inspection Left lower extremity: normal to inspection NIH Stroke Scale Internal: Initial- Upon Arrival Level of Consciousness: Alert Level of Consciousness Questions: Answers both questions correctly Level of Consciousness Commands: Performs both tasks correctly Best Gaze: Normal Visual: No visual loss Facial Palsy: Normal Motor Arm (Right): No drift Motor Arm (Left): No drift Motor Leg (Right): No drift Motor Leg (Left): No drift Limb Ataxia: Absent Sensory: Normal Best Language: No aphasia Dysarthia: Normal Extinction and Inattention: No abnormality Score: 0 Course Reevaluation(s) Reevaluation #1: Second troponin 2.8. Repeat EKG nonischemic. Patient still endorsing left arm pain and numbness. Re-evaluated, patient has tenderness to palpation along the trapezius muscles with spasm noted. Symptoms likely musculoskeletal in nature. We will medicate with muscle relaxant and re-evaluate. Time: 11:45 Reevaluation #2: Patient feeling much better, symptoms have resolved. Patient has tenderness palpation along her trapezius muscles, and arm, this is likely musculoskeletal in nature. Discussed findings with patient. She understands and agrees with plan. Patient discharged on muscle relaxants. Given strict return precautions. Patient stable for discharge. Medications Administered Discontinued Medications Generic Name Dose Route Start Last Admin Trade Name Freq PRN Reason Stop Dose Admin Aspirin 324 mg 02/04/24 07:20 02/04/24 07:32 Aspirin 81 Mg Tab.Chew PO 02/04/24 07:21 324 mg ONCE ONE Administration Diazepam 2 mg 02/04/24 11:56 02/04/24 12:14 Diazepam 2 Mg Tablet PO 02/04/24 11:57 2 mg ONCE ONE Administration Hydromorphone HCl 0.5 mg 02/04/24 11:56 02/04/24 12:14 Hydromorphone Hcl 0.5 Mg/0.5 Ml Syringe IVPUSH 02/04/24 11:57 0.5 mg ONCE ONE Administration Protocol Medical Decision Making Medical Decision Making [facility] Narrative: This is a 41-zdsu-aqn-female, with a hx of HTN, who presents to the ER with complaints of left sided chest pain radiating into her bilateral arms and left sided facial numbness. On arrival, pt is alert and oriented x 4, NIH score of 0. Given concern for cardiac related, will be medicated with aspirin 324 by mouth. Labs, EKG, chest x-ray will be obtained. Differential Diagnosis Differential Diagnoses: The differential diagnosis associated with the presentation includes ACS, muscle strain, costochondritis, pneumothorax, viral syndrome Admission/Observation Consideration of admission/observation: Escalation of care including admission/observation considered Lab Data [facility] Lab Attestation statement: I reviewed the patient's lab results. Slight leukocytosis at 13.2, electrolytes within normal limits. Troponin x2 negative. Inflammatory markers negative. Viral swabs normal. 02/04/24 06:58 02/04/24 06:58 Labs: Lab Results 02/04/24 02/04/24 02/04/24 Range/Units 06:58 07:34 10:17 WBC 13.2 H (4.8-10.8) X10*3/uL RBC 4.91 (4.20-5.50) X10*6/uL Hgb 14.8 (12.0-16.0) g/dl Hct 43.6 (37.0-47.0) % MCV 88.8 (80.0-98.0) fL MCH 30.1 (27.0-33.0) pg MCHC 33.9 (31.0-35.0) g/dl RDW 12.5 (11.0-16.0) % Plt Count 331 (160-400) X10*3/uL MPV 10.4 (9.4-12.3) fL Absolute Nucleated RBC 0.000 (0.0-0.012) X10*3/uL Nucleated RBC % (auto) 0.0 (0.0-0.2) /100WBC Neutrophils % (Manual) 67 (45-73) % Band Neutrophils % 0 L (3-5) % Lymphocytes % (Manual) 24 (20-40) % Monocytes % (Manual) 7 (2-11) % Eosinophils % (Manual) 2 (0-4) % Abs Neuts (Manual) 8.8 H (2.0-8.3) X10*3/uL Lymphocytes # (Manual) 3.2 (1.2-4.9) X10*3/uL Monocytes # (Manual) 0.9 (0.1-1.2) X10*3/uL Eosinophils # (Manual) 0.3 (0.0-0.4) X10*3/uL Platelet Estimate NORMAL (NORMAL) Plt Morphology Comment NORMAL RBC Morphology NORMAL ESR 6 (0-20) MM/HR PT 12.1 (11.1-13.3) SEC INR 1.0 (0.9-1.1) APTT 28.3 (26.0-36.8) SEC D-Dimer High Sensitivty 164 NG/ML Sodium 140 (135-145) mmol/L Potassium 3.2 L (3.3-5.1) mmol/L Chloride 106 (96-108) mmol/L Carbon Dioxide 23 (22-29) mmol/L Anion Gap 14 (12-20) BUN 13 (9-16) mg/dL Creatinine 0.90 (0.5-1.4) mg/dL Estim Creat Clear Calc 120.4 Estimated GFR > 60 Random Glucose 115 (60-115) mg/dL Calcium 9.3 (8.4-10.2) mg/dL Magnesium 2.1 (1.6-2.6) mg/dL Total Bilirubin 0.7 (0.0-1.0) mg/dL AST 19 (5-31) U/L ALT 28 (0-31) U/L Alkaline Phosphatase 62 (39-117) U/L Total Creatine Kinase 183 H (26-140) U/L Troponin I High Sens 3.9 2.8 (<3.5-17.0) ng/L C-Reactive Protein 0.16 (< or = 0.50) mg/dL B-Natriuretic Peptide < 10 (<100) pg/mL Total Protein 7.4 (6.5-8.0) g/dL Albumin 4.0 (3.5-5.0) g/dL Influenza Type A (PCR) NEGATIVE (Negative) Influenza Type B (PCR) NEGATIVE (Negative) RSV RNA Qual (PCR) NEGATIVE (Negative) SARS-CoV-2 RNA (RT-PCR) NEGATIVE (Negative) Independent Interpretation I performed an independent interpretation of an: EKG Interpretation: EKG normal sinus rhythm at a ventricular rate of 72 beats per minute, no ST elevation or depression. Radiology Impression Discussion of test interpretation with radiology: I have reviewed the radiologist's reading. Radiologist Impression: FINDINGS: Hypoinflation of the lungs with minimal right basilar atelectasis. No confluent airspace consolidation. No pleural effusion or pneumothorax. Stable cardiomediastinal silhouette. IMPRESSION: Hypoinflation of the lungs with minimal right basilar atelectasis. Electronically signed by: Sage Mcfadden MD 02/04/2024 11:15 AM EDT RP Discharge Plan Discharge Clinical Impression: Atypical chest pain, Spasm of left trapezius muscle Patient Disposition: Home, Self-Care Instructions: Chest Pain (ED), Muscle Spasm (ED) Additional Instructions: You were seen in the emergency department due to left-sided chest pain. Your EKG, labs were within normal limits. It is unclear what is causing you to have chest pain however your EKG, blood work, was all reassuring. Please rest, drink plenty of fluids, gentle stretching and massage can help. You may apply Lidoderm patches as well as take prescribed muscle relaxants as needed. Please be advised that Flexeril can cause drowsiness, do not drink alcohol or drive while taking this medication. For any new or worsening symptoms occur including but not limited to fevers, chills, chest pain, shortness of breath, please return for re-evaluation. Prescriptions: New cyclobenzaprine 10 mg tablet 10 mg PO TID PRN (Reason: muscle spasm) Qty: 10 0RF No Action cholecalciferol (vitamin D3) 125 mcg (5,000 unit) capsule 125 mcg PO DAILY 90 Days Qty: 90 0RF acetaminophen [Tylenol] 325 mg tablet 650 mg PO Q6H PRN (Reason: pain) Qty: 30 0RF ibuprofen 600 mg tablet 600 mg PO Q6H PRN (Reason: pain) Qty: 45 0RF oxycodone 5 mg capsule 5 mg PO Q6H PRN (Reason: pain) Qty: 5 0RF Rx Instructions: Partial Fill upon patient request. hydrochlorothiazide 25 mg tablet 25 mg PO DAILY lisinopril 5 mg tablet 5 mg PO DAILY Interventions: ED Discharge Assessment Last Done: 02/04/24 15:12 Discharge Date/Time: 02/04/24 15:13 Print Language: Sammarinese
[2024-02-04 07:03] LABS: Baso%MD 0.2 %; Hematocrit 43.6 % (37.0-47.0); Hemoglobin 14.8 g/dl (12.0-16.0); IG%MD 0.4 %; Lymph%MD 24.3 %; Mean Corpuscular HGB Conc 33.9 g/dl (31.0-35.0); Mean Corpuscular Hemoglobin 30.1 pg (27.0-33.0); Mean Corpuscular Volume 88.8 fL (80.0-98.0); Mean Platelet Volume 10.4 fL (9.4-12.3); Mono%MD 9.4 %; Neut%MD 63.7 %; Platelet Count 331 X10*3/uL (160-400); Red Blood Count 4.91 X10*6/uL (4.20-5.50); Red Cell Distribution Width 12.5 % (11.0-16.0); White Blood Count 13.2 X10*3/uL (4.8-10.8)
[2024-02-04 07:20] LABS: Alanine Aminotransferase 28 U/L (0-31); Alkaline Phosphatase 62 U/L (39-117); Anion Gap 14 (12-20); Aspartate Amino Transferase 19 U/L (5-31); Bilirubin Total 0.7 mg/dL (0.0-1.0); Blood Urea Nitrogen 13 mg/dL (9-16); Calcium 9.3 mg/dL (8.4-10.2); Carbon Dioxide 23 mmol/L (22-29); Chloride 106 mmol/L (96-108); Creatinine Clr Calc Pharmacy 120.4; Estimated Glomerular Filt Rate > 60; Glucose Random 115 mg/dL (60-115); Potassium 3.2 mmol/L (3.3-5.1); Sodium 140 mmol/L (135-145); Total Protein 7.4 g/dL (6.5-8.0)
[2024-02-04 07:25] LABS: B Type Natriuretic Peptide < 10 pg/mL (<100)
[2024-02-04 07:27] LABS: Troponin-I High Sensitivity 3.9 ng/L (<3.5-17.0)
[2024-02-04 07:32] LABS: Eosinophils Absolute Manual 0.3 X10*3/uL (0.0-0.4); Eosinophils Percent Manual 2 % (0-4); Lymphocytes Absolute Manual 3.2 X10*3/uL (1.2-4.9); Lymphocytes Percent Manual 24 % (20-40); Monocytes Absolute Manual 0.9 X10*3/uL (0.1-1.2); Monocytes Percent Manual 7 % (2-11); Neutrophils Percent Manual 67 % (45-73)
[2024-02-04] MEDS: Aspirin 81 MG TAB.CHEW 324 MG PO (07:32)
[2024-02-04 07:33] LABS: Band Neutrophils Percent 0 % (3-5); Neutrophils Absolute Manual 8.8 X10*3/uL (2.0-8.3); Platelet Estimate NORMAL (NORMAL); Platelet Morphology Comment NORMAL; RBC Morphology NORMAL
--- NOTE | 2024-02-04 07:36 | PC.NURSE ---
Pt comes to ED today for c/o chest pain 03/26. Pain started this morning and woke her up from sleeping. VSS, A&Ox3, SSO--family at bedside. Pt medicated per AUG and blood labs completed. Pt will have CXR.
[2024-02-04 07:59] LABS: Prothrombin Time 12.1 SEC (11.1-13.3)
[2024-02-04 08:02] LABS: Partial Thromboplastin Time 28.3 SEC (26.0-36.8)
[2024-02-04 09:14] LABS: Influenza A PCR NEGATIVE (Negative); Influenza B PCR NEGATIVE (Negative); Resp Syncy Virus RNA Qual PCR NEGATIVE (Negative); SARS COV2 PCR INHOUSE NEGATIVE (Negative)
[2024-02-04 09:54] LABS: C Reactive Protein 0.16 mg/dL (< or = 0.50); Magnesium 2.1 mg/dL (1.6-2.6)
[2024-02-04 10:16] LABS: Erythrocyte Sedimentation Rate 6 MM/HR (0-20)
--- NOTE | 2024-02-04 10:18 | ECG_ITS ---
Test Reason : CP,LT ARM NUMBNESS Blood Pressure : / mmHG Vent. Rate : 072 BPM Atrial Rate : 072 BPM P-R Int : 150 ms QRS Dur : 088 ms QT Int : 394 ms P-R-T Axes : 000 018 002 degrees QTc Int : 431 ms Normal sinus rhythm Nonspecific T wave abnormality Abnormal ECG When compared with ECG of 04-FEB-2024 06:36, QRS duration has decreased Nonspecific T wave abnormality no longer evident in Lateral leads Referred By: Lida Gaitan Electronically Signed By:HEIDI MATHIAS
[2024-02-04 10:28] LABS: D Dimer High Sensitivity 164 NG/ML
[2024-02-04 10:49] LABS: Troponin-I High Sensitivity 2.8 ng/L (<3.5-17.0)
[2024-02-04] MEDS: diazePAM 2 MG TABLET PO (12:14)
[2024-02-04] MEDS: HYDROmorphone HCl 0.5 MG/0.5 ML SYRINGE IVPUSH (12:14)
== END 2024-02-04 15:13 | disposition home or self-care (01) ==
PROVIDERS: Emergency Medicine; Physician Assistant Medical; Emergency Provider Emergency Medicine
DX: R07.89 Other chest pain (principal); R20.0 Anesthesia of skin; I10 Essential (primary) hypertension; Z79.899 Other long term (current) drug therapy; Z03.818 Encounter for observation for suspected exposure to other biological agents ruled out
CPT/HCPCS: 0241U; 36415; 71046; 80053; 82550; 83735; 83880; 84484; 85007; 85027; 85379; 85610; 85652; 85730; 86140; 93005; 96374; 99285; J1170

== ENCOUNTER 2024-10-01 08:25 | Emergency (ER) | payer OTHER, SELFPAY ==
--- NOTE | ~2024-10-01 | CT_ITS ---
EXAMINATION: CT SOFT TISSUE NECK WITH CONTRAST CLINICAL INFORMATION: Neck pain and facial pain, left-sided. COMPARISON: None available. TECHNIQUE: Following the intravenous administration of 75 mL of Omnipaque 350 intravenous contrast, helical imaging was performed in the axial plane with generation of coronal and sagittal reformatted images. This CT examination was performed using dose optimization techniques as appropriate, variously including the following: *Automated exposure control *Adjustment of mA and/or kV according to patient size (this includes techniques or standardized protocols for targeted exams where dose is matched to indication/reason for exam; i.e. extremities or head) *Use of iterative reconstruction technique DLP: 834 mGy centimeter. FINDINGS: Skull base, nasopharynx, retropharynx, oropharynx, hypopharynx and larynx demonstrated no gross masses or fluid collections. Prominent lingual tonsils into the vallecula. Hand Crown Pouncer spaces, parapharyngeal spaces and carotid spaces demonstrated no gross masses or fluid collections. Salivary glands demonstrated no sialolithiasis or enhancing lesion. There is fat density in the parotid glands involving the posterior superficial components. The vessels are patent. Multiple, scattered, different sizes and (16mm lymph nodes involving the supra and infrahyoid carotid compartments as well as the submandibular, sublingual and to a lesser extent supraclavicular. Mildly prominent thyroid gland without dominant nodule. There is a 3 mm hypodensity in the left thyroid lobe. Mild multilevel cervical spondylosis accentuated at C5-C6. No masses or fluid collections in the intraconal or extraconal compartments of the orbits. Tympanic cavities and mastoid cells are aerated. CT/CT soft tissue neck w IV con IMPRESSION: Bilateral cervical lymphadenopathy the largest in the level left IIb. Electronically signed by: Salvador Tolentino MD 10/01/2024 12:29 PM EDT
[2024-10-01 08:33] VITALS: BP 126/83; PULSE 72; RESP 16; TEMP 36.1; O2SAT 96; BMI 41.8
--- OUTSIDE RECORDS SUMMARY | 2024-10-01 09:35 | XMS_ITS | Clinical Summary ---
Author Organization [facility] Address [address] [place] [address] Phone Care Team Providers Care Monomer Recovery Operator Name Role Phone Chandni Lam NP Primary Care Provider [phone] Allergies Active Allergy Reactions Criticality Noted Date Comments Amlodipine Other (see comments) 07/05/2023 Ankle swelling and skin of feet and ankles opened and started weeping Aspirin 07/05/2023 Ibuprofen 07/05/2023 Naproxen 07/05/2023 Per nursing support worker records Peanut Oil Hives,Other (see comments),Swelling 07/05/2023 Medications triamcinolone (KENALOG) 0.025 % cream See Instructions, APPLY CREAM TOPICALLY TO ACTIVE AREAS THREE TIMES DAILY FOR ITCHING SKIN AND ECZEMA FOR 14 DAYS. LIMIT TO 2 WEEKS AT A TIME, # 60 Gm, 0 Refills, Maintenance, 06/03/23 17:43:00 [id number], 14, APPLY CREAM TOPICALLY T... 3 Active traZODone (DESYREL) 50 MG tablet Take 50 mg by mouth 3 Active spironolactone (ALDACTONE) 25 MG tablet Take 25 mg by mouth 3 Active sertraline (ZOLOFT) 50 MG tablet Take 50 mg by mouth 3 Active pregabalin (Lyrica) 75 MG capsule Take 75 mg by mouth 2 Active polyethylene glycol-electrol ytes (Nulytely Lemon-Mi'Kmaq) 420 g solution See Instructions, per GI office, # 4,000 mL, 0 Refills, [id number] upon patient request if the prescription is for a schedule II opioid drug., per GI office, 180, cm, 10/24/21 18:10:00 EDT,... 2 Active montelukast (SINGULAIR) 10 MG tablet See Instructions, TAKE 1 TABLET BY MOUTH ONCE DAILY IN THE EVENING AT BEDTIME TO CONTROL ASTHMA AND ALLERGIES, # 90 tablet, Refills 3, Maintenance, 05/16/23 15:21:00 EST, Instructions Replace Required Details, [facility] 3 Active loratadine (Claritin) 10 MG tablet Take 10 mg by mouth 3 Active ketoconazole (NIZORAL) 2 % shampoo See Instructions, APPLY TOPICALLY TO SCALP AND THEN LATHER AND LET SIT FOR 10 MINUTES BEFORE RINSING OUT, USE THREE TIMES A WEEK, # 120 mL, 11 Refills, Maintenance, 11/28/22 15:06:00 EDT, [id number], 30, APPLY TOPICALLY TO SCALP AND THEN LA... 3 Active hydroCHLOROthia zide 25 MG tablet Take 1 tablet by mouth 3 Active fluticasone (Flonase Allergy Relief) 50 MCG/ACT nasal spray Administer into affected nostril(s) 3 Active EPINEPHrine (EpiPen 2-Duc) 0.3 MG/0.3ML injection syringe Inject 0.3 mg into the shoulder, thigh, or buttocks 2 Active cetirizine (ZyrTEC) 10 MG tablet See Instructions, TAKE 1 TABLET BY MOUTH DAILY FOR NASAL CONGESTION FOR 90 DAYS, # 90 tablet, 1 Refills, Maintenance, 03/13/23 11:48:00 EDT, [id number], 180, cm, 11/29/22 9:44:00 EDT, Height, 139.9, kg, 11/23/21 13:10:00 EDT, Dry Weight 3 Active albuterol (2.5 MG/3ML) 0.083% nebulizer solution Inhale 2.5 mg 2 Active Active Problems Problem Noted Date Diagnosed Date Hypertension 07/08/2023 Edema 07/08/2023 Lipoma of intra-abdominal organ 07/05/2023 Hyperlipidemia 07/05/2023 Gastritis 07/05/2023 Depressive disorder 07/05/2023 Chronic sinusitis 07/05/2023 Chronic back pain 07/05/2023 Asthma 07/05/2023 Allergy to peanuts 07/05/2023 Simple renal cyst 07/05/2023 Severe obesity 07/05/2023 Psoriasis 07/05/2023 Prediabetes 07/05/2023 Obstructive sleep apnea syndrome 07/05/2023 Low grade squamous intraepit helial lesion on cervical Papanicolaou smear 07/05/2023 Overview (07/05/2023): 08/2021-pap wnl, hpv neg-for f/u pap, cotest 08/2022.colpo 09/07/2020 cx bx cin1; ecc cin1; pap again lgsil/xhgsil. for pap, cotesting 08/2021.2019 Cerebrovascular accident 06/17/2013 Pre-eclampsia 07/06/2005 Immunizations Immunization Administration Dates Next Due Hepatitis B 05/30/2018,12/31/2017,11/28/2017 Moderna SARS-COV-2 06/04/2021,11/18/2020, 021 Pneumococcal Polysaccharide 11/05/2017 Tdap 11/05/2017 Social History Tobacco Use Types Packs/Day Years Used Date Smoking Tobacco: Never Smokeless Tobacco: Never Tobacco Cessation:Counseling Given: No Alcohol Use Standard Drinks/Week Comments Never 0 (1 standard drink = 0.6 oz pur e alcohol) Comments Unknown Sex and Gender Information Value Date Recorded Sex Assigned at Not on file Legal Sex Female 11:06 AM EST Gender Identity Not on file Sexual Orientation Not on file Last Filed Vital Signs Vital Sign Reading Time Taken Comments Blood Pressure 112/78 07/08/2023 1:56 PM EST Pulse 88 07/08/2023 1:56 PM EST Temperature - - Respiratory Rate - - Oxygen Saturation - - Inhaled Oxygen Concentration - - Weight 130 kg (286 lb 6.4 oz) 07/08/2023 1:56 PM EST Height - - Body Mass Index - - Plan of Treatment Health Maintenance Due Date Last Done Comments Hepatitis B Vaccine (1 of 3 - 19+ 3-dose series) 1999 05/30/2018, 12/31/2017, 11/28/2017 Pneumococcal Vaccine: Peds ( 0 to 5 Years) and At-Risk Patients (6 to 49 Years) (2 of 2 - PCV) 11/05/2018 11/05/2017 Influenza Vaccine (Season Ended) 2025 Insurance [facility] Care Teams Monomer Recovery Operator Relationship Specialty Start Date End Date Chandni Lam NP [address] [place] [phone] PCP - General Nurse Practitioner 05/30/23
--- NOTE | 2024-10-01 09:40 | ED_ITS ---
HPI - Headache General Chief Complaint: Headache Stated Complaint: l side neck pain swelling Time Seen by Provider: 10/01/24 09:03 Source: patient, RN notes reviewed and old records reviewed Mode of arrival: ambulatory History of Present Illness ED Provider: Randa Jean Baptiste PA-C HPI Narrative: 44-year-old female with a past medical history of HTN, obesity, MARK, presenting to the ED complaining of left ear pain since last week, seen at clinic and prescribed Augmentin without relief, now reporting pain radiates to left jaw and head. States pain is worsening with associated fever, chills, sore throat & lightheadedness last night. Self stopped antibiotic last night (took about 6 days). States ear feels clogged. Denies injury, trauma, fall, recent dental procedures, drainage from ear, dental pain, difficulty or inability to swallow Related Data Home Medications ?Medication ?Instructions ?Recorded ?Confirmed hydrochlorothiazide 25 mg tablet 25 mg PO DAILY 11/08/22 02/19/23 lisinopril 5 mg tablet 5 mg PO DAILY 11/08/22 02/19/23 Previous Rx's ?Medication ?Instructions ?Recorded acetaminophen 325 mg tablet 650 mg (2 x 325 mg) PO Q6H PRN 02/12/23 (Tylenol) pain #30 tabs ibuprofen 600 mg tablet 600 mg PO Q6H PRN pain #45 tabs 02/12/23 oxycodone 5 mg capsule 5 mg PO Q6H PRN pain #5 caps 02/12/23 cholecalciferol (vitamin D3) 125 125 mcg PO DAILY 90 days #90 caps 05/15/23 mcg (5,000 unit) capsule cyclobenzaprine 10 mg tablet 10 mg PO TID PRN muscle spasm #10 02/04/24 tabs acetaminophen 500 mg tablet 500 mg PO Q6H PRN fever or pain 10/01/24 (Tylenol Extra Strength) #14 tabs cyclobenzaprine 5 mg tablet 5 mg PO Q8H PRN pain (scale score 10/01/24 7-10) 5 days #14 tabs lidocaine 5 % topical patch 1 patch topical DAILY PRN pain #30 10/01/24 (Lidoderm) ea naproxen 500 mg tablet 500 mg PO BID PRN pain 10 days #20 10/01/24 tabs Allergies Allergy/AdvReac Type Severity Reaction Status Date / Time NUTS Allergy Mild Anaphylaxis Uncoded 10/01/24 08:34 Review of Systems 2 Review of Systems: Yes all other systems are reviewed and are negative Constitutional: Constitutional: Reports as per HPI Neurologic: Denies Abnormal speech present [facility] Past Medical History Attestation statement: The following information was validated with the patient. Source: old records reviewed Surgical History Hx of cholecystectomy Hx of section Hx of hernia repair Hx of rectal polypectomy Family History Family History Mother No problems noted. Father Hypertension Heart disease Brother No problems noted. Brother No problems noted. Son No problems noted. Son No problems noted. Social History Social History Alcohol intake: never Patient Tobacco Use Status: Never used Tobacco Physical Exam 2 Vital Signs: Vital Signs: Last Vital Signs Temp 97.6 F 10/01/24 13:18 Pulse 54 10/01/24 13:18 Resp 14 10/01/24 13:18 BP 150/62 H 10/01/24 13:18 Pulse Ox 99 10/01/24 13:18 O2 Del Method Room Air 10/01/24 13:18 BMI result Body Mass Index 41.8 Const: General: cooperative, healthy appearing and no acute distress O rientation/consciousness: patient oriented x3 Limitations: no limitations HEENT: Other: no appreciable facial swelling. + Tenderness to left TMJ. Mild trismus. + Left mastoid tenderness. TMs WNL bilaterally, no erythema / bulging or effusion. No appreciable intraoral infection, swelling, fluctuance/ induration or cellulitis. Uvula midline. Head: Yes normal to inspection, Yes No palpable skull fracture present and Yes atraumatic Ears: hearing grossly normal bilaterally, external ears normal, TM's normal bilaterally and mastoid abnormal (+ left mastoid tenderness) General nose exam: Normal external nose present Face and sinus: Yes normal facial exam Mouth: no audible dysphonia and no drooling Throat: Yes posterior oropharynx normal, Yes tonsils normal, Yes uvula midline, No peritonsillar mass, No uvula laterally displaced and No uvular edema Eyes: General: appearance normal, both eyes and all related structures EOM: EOMs intact bilaterally Neck: Neck: Yes normal visual inspection, Yes no meningeal signs, Yes supple and No anterior neck swelling Resp: Effort & Inspection: normal respiratory effort, no respiratory distress and no stridor Cardio: Rate: regular rate Skin: Rashes: no rashes Wounds: no wounds Neuro: General: patient oriented x3, tone normal, moves all extremities, no meningeal signs, no focal motor deficits and CN's II-XI intact bilaterally C ranial nerves: Yes CN's II-XII intact bilaterally Cognition (Neuro): normal cognition Speech: No Abnormal speech present Gait exam (Neuro): Normal gait present Extrem: General: Yes normal to inspection Course Course Course Narrative: -1353-- No leukocytosis. Labs otherwise reassuring. ESR / CRP reassuring -Rapid strep negative CT soft tissue neck w IV con IMPRESSION: Bilateral cervical lymphadenopathy the largest in the level left IIb. > case discussed with ED attending Dr. Miller who also evaluated patient. No appreciable infection or abscess on exam. Recommended discharge with prednisone and muscle relaxers. And ENT follow-up Results discussed with patient including worrisome signs and symptoms and strict return precautions, and when to return to the emergency department. They verbalized understanding and feel safe for discharge at this time. Medications Administered Discontinued Medications Generic Name Dose Route Start Last Admin Trade Name Johnq PRN Reason Stop Dose Admin Sodium Chloride 1,000 mls @ 999 mls/hr 10/01/24 09:45 10/01/24 10:22 Ns IV 10/01/24 10:45 999 mls/hr .Q1H1M MELISSA Administration Iohexol 100 ml 10/01/24 11:43 10/01/24 11:44 Iohexol 350 Mg/Ml 100 Ml Infus..Btl IV 10/01/24 11:44 75 ml ONCE ONE Administration Ketorolac Tromethamine 15 mg 10/01/24 09:30 10/01/24 09:42 Ketorolac Tromethamine 15 Mg/Ml Vial IVPUSH 10/01/24 09:31 15 mg ONCE ONE Administration Meclizine HCl 25 mg 10/01/24 09:45 10/01/24 10:22 Meclizine Hcl 25 Mg Tablet PO 10/01/24 09:46 25 mg ONCE ONE Administration Medical Decision Making Medical Decision Making MDM Narrative: 44-year-old female with a past medical history of HTN, obesity, MARK, presenting to the ED complaining of left ear pain since last week, seen at clinic and prescribed Augmentin without relief, now reporting pain radiates to left jaw and head. States pain is worsening with associated fever, chills, sore throat & lightheadedness last night. On exam vital signs stable, afebrile, NAD, nontoxic appearing, physical exam as noted above. Concern for mastoiditis vs deeper infection/edema vs TMJ vs ? trigeminal neuralgia vs ?giant cell arteritis vs abscess Plan: Labs, rapid strep, CT mastoid, CT neck, pain control, re-evaluate Please refer to course for remaining clinical decision making, interpretation of labs/imaging results, and discussions with consultants and/or family members. Differential Diagnosis Differential Diagnoses: The differential diagnosis associated with the presentation includes As above Admission/Observation Consideration of admission/observation: Escalation of care including admission/observation considered Lab Data MDM Lab Attestation statement: I reviewed the patient's lab results. 10/01/24 09:38 10/01/24 09:39 Labs: Lab Results 10/01/24 10/01/24 10/01/24 Range/Units 09:38 09:39 10:03 WBC 9.8 (4.8-10.8) X10*3/uL RBC 4.86 (4.20-5.50) X10*6/uL Hgb 14.4 (12.0-16.0) g/dl Hct 43.1 (37.0-47.0) % MCV 88.7 (80.0-98.0) fL MCH 29.6 (27.0-33.0) pg MCHC 33.4 (31.0-35.0) g/dl RDW 12.6 (11.0-16.0) % Plt Count 337 (160-400) X10*3/uL MPV 10.5 (9.4-12.3) fL Immature Gran % (Auto) 0.4 (0.0-0.4) % Neut % (Auto) 60.8 (45-73) % Lymph % (Auto) 25.2 (20-40) % [place] % (Auto) 10.0 (2-11) % Eos % (Auto) 3.4 (0-4) % Baso % (Auto) 0.2 (0-2) % Lymph # (Auto) 2.5 (1.2-4.9) X10*3/uL [place] # (Auto) 1.0 (0.1-1.2) X10*3/uL Eos # (Auto) 0.3 (0.0-0.4) X10*3/uL Baso # (Auto) 0.0 (0.0-0.2) X10*3/uL Abs Immat Gran (auto) 0.04 H (0.00-0.03) X10*3/uL Absolute Neuts (auto) 5.9 (2.0-8.3) x10*3/uL Absolute Nucleated RBC 0.000 (0.0-0.012) X10*3/uL Nucleated RBC % (auto) 0.0 (0.0-0.2) /100WBC ESR 7 (0-20) MM/HR Sodium 140 (135-145) mmol/L Potassium 3.6 (3.3-5.1) mmol/L Chloride 104 (96-108) mmol/L Carbon Dioxide 28 (22-29) mmol/L Anion Gap 12 (12-20) BUN 17 H (9-16) mg/dL Creatinine 0.90 (0.5-1.4) mg/dL Estim Creat Clear Calc 122.0 Estimated GFR > 60 Random Glucose 105 (60-115) mg/dL Calcium 9.0 (8.4-10.2) mg/dL Total Bilirubin 0.5 (0.0-1.0) mg/dL Direct Bilirubin 0.2 (0.0-0.5) mg/dL AST 24 (5-31) U/L ALT 28 (0-31) U/L Alkaline Phosphatase 66 (39-117) U/L C-Reactive Protein 0.57 H (< or = 0.50) mg/dL Total Protein 6.9 (6.5-8.0) g/dL Albumin 3.7 (3.5-5.0) g/dL Beta HCG, Quant < 2 mIU/mL S. pyogenes GrpA JENNIFER Negative (Negative) Radiology Impression Discussion of test interpretation with radiology: I have reviewed the radiologist's reading. External Record Review External record reviewed: Inpatient record, Office record, Outpatient record, Prior outpatient labs, Prior outpatient radiology, Primary care record and Outside ED record Tests considered The following testing was considered but not selected: As above Prescription Management I considered prescription management with: Pain Medication and Antibiotic Chronic Conditions Patient?s care impacted by: Other Social Determinants Patient?s care significantly limited by Social Determinants of Health including: Other Social Determinant of Health Discharge Plan Discharge Clinical Impression: Cervical lymphadenopathy, Cervical muscle pain Patient Disposition: Home, Self-Care Instructions: Lymphadenopathy (ED), Acute Neck Pain (ED) Additional Instructions: your blood work and CAT scan are reassuring The CAT scan of your neck shows some inflamed lymph nodes Flexeril is a muscle relaxer, take at night as it makes you drowsy, do not drive, drink alcohol, or operate machinery while taking it Naproxen as an anti-inflammatory / pain medication, take with food In addition take Tylenol at home Lidoderm patches are numbing patches, apply to painful area YOU NEED TO FOLLOW UP WITH AN ENT SPECIALIST. CALL TO MAKE AN APPOINTMENT If symptoms persist or worsen, pain becomes unbearable, you developed urinary retention or incontinence, or weakness return to the ED Prescriptions: New acetaminophen [Tylenol Extra Strength] 500 mg tablet 500 mg PO Q6H PRN (Reason: fever or pain) Qty: 14 0RF lidocaine [Lidoderm] 5 % adhesive patch,medicated 1 patch topical DAILY MDD remove after 12 hours PRN (Reason: pain) Qty: 30 0RF Rx Instructions: leave on most painful area for up to 12 hrs naproxen 500 mg tablet 500 mg PO BID PRN (Reason: pain) 10 Days Qty: 20 0RF cyclobenzaprine 5 mg tablet 5 mg PO Q8H PRN (Reason: pain (scale score 7-10)) 5 Days Qty: 14 0RF No Action cholecalciferol (vitamin D3) 125 mcg (5,000 unit) capsule 125 mcg PO DAILY 90 Days Qty: 90 0RF acetaminophen [Tylenol] 325 mg tablet 650 mg PO Q6H PRN (Reason: pain) Qty: 30 0RF ibuprofen 600 mg tablet 600 mg PO Q6H PRN (Reason: pain) Qty: 45 0RF oxycodone 5 mg capsule 5 mg PO Q6H PRN (Reason: pain) Qty: 5 0RF Rx Instructions: Partial Fill upon patient request. cyclobenzaprine 10 mg tablet 10 mg PO TID PRN (Reason: muscle spasm) Qty: 10 0RF hydrochlorothiazide 25 mg tablet 25 mg PO DAILY lisinopril 5 mg tablet 5 mg PO DAILY Referrals: [facility] [Provider Group] Favian Flores [Physician] - 5 days Discharge Date/Time: 10/01/24 14:22 Print Language: Georgian
[2024-10-01 09:42] LABS: MANUAL DIFF FLAG NO
[2024-10-01] MEDS: Ketorolac Tromethamine 15 MG/ML VIAL IVPUSH (09:42)
[2024-10-01 09:45] LABS: Basophils Percent Auto 0.2 % (0-2); Eosinophils Absolute Auto 0.3 X10*3/uL (0.0-0.4); Eosinophils Percent Auto 3.4 % (0-4); Hematocrit 43.1 % (37.0-47.0); Hemoglobin 14.4 g/dl (12.0-16.0); Imm Gran Abs Auto 0.04 X10*3/uL (0.00-0.03); Imm Gran Pct Auto 0.4 % (0.0-0.4); Lymphocytes Absolute Auto 2.5 X10*3/uL (1.2-4.9); Lymphocytes Percent Auto 25.2 % (20-40); Mean Corpuscular HGB Conc 33.4 g/dl (31.0-35.0); Mean Corpuscular Hemoglobin 29.6 pg (27.0-33.0); Mean Corpuscular Volume 88.7 fL (80.0-98.0); Mean Platelet Volume 10.5 fL (9.4-12.3); Neutrophils Absolute Auto 5.9 x10*3/uL (2.0-8.3); Neutrophils Percent Auto 60.8 % (45-73); Platelet Count 337 X10*3/uL (160-400); Red Blood Count 4.86 X10*6/uL (4.20-5.50); Red Cell Distribution Width 12.6 % (11.0-16.0); White Blood Count 9.8 X10*3/uL (4.8-10.8)
[2024-10-01 10:09] LABS: Alanine Aminotransferase 28 U/L (0-31); Albumin Level 3.7 g/dL (3.5-5.0); Alkaline Phosphatase 66 U/L (39-117); Anion Gap 12 (12-20); Aspartate Amino Transferase 24 U/L (5-31); Bilirubin Direct 0.2 mg/dL (0.0-0.5); Bilirubin Total 0.5 mg/dL (0.0-1.0); Blood Urea Nitrogen 17 mg/dL (9-16); C Reactive Protein 0.57 mg/dL (< or = 0.50); Carbon Dioxide 28 mmol/L (22-29); Chloride 104 mmol/L (96-108); Estimated Glomerular Filt Rate > 60; Glucose Random 105 mg/dL (60-115); Potassium 3.6 mmol/L (3.3-5.1); Sodium 140 mmol/L (135-145); Total Protein 6.9 g/dL (6.5-8.0)
[2024-10-01] MEDS: 0.9 % Sodium Chloride 1,000 ML 999 ML IV (10:22)
[2024-10-01] MEDS: Meclizine HCl 25 MG TABLET PO (10:22)
[2024-10-01 10:24] LABS: IDNOW Serial# 55D5AD1C; Strep A Nucleic Acid Negative (Negative)
[2024-10-01 10:33] LABS: Erythrocyte Sedimentation Rate 7 MM/HR (0-20)
[2024-10-01 10:42] VITALS: BP 134/82; PULSE 61; RESP 18; TEMP 36.6; O2SAT 100
[2024-10-01 11:25] LABS: HCG Quantitative < 2 mIU/mL
[2024-10-01] MEDS: iohexoL 350 MG/ML 100 ML INFUS..BTL IV (11:44)
[2024-10-01 13:17] VITALS: BP 106/65; PULSE 75; RESP 16; TEMP 37; O2SAT 97
[2024-10-01 13:18] VITALS: BP 150/62; PULSE 54; RESP 14; TEMP 36.4; O2SAT 99
== END 2024-10-01 14:22 | disposition home or self-care (01) ==
PROVIDERS: Physician Assistant; Emergency Provider Emergency Medicine; PCP Internal Medicine
DX: R59.1 Generalized enlarged lymph nodes (principal); M54.2 Cervicalgia; I10 Essential (primary) hypertension
CPT/HCPCS: 36415; 70491; 80048; 80076; 84702; 85025; 85652; 86140; 87651; 96374; 99283; 99284; J1885; Q9967

== ENCOUNTER → 2024-10-01 09:42 | Outpatient (BNV) | payer OTHER, SELFPAY | PROVIDERS: Emergency Provider Emergency Medicine; PCP Internal Medicine; Visit Provider Radiology Diagnostic Radiology | DX: R59.0 Localized enlarged lymph nodes (principal) | CPT/HCPCS: 70491 ==